=== PATIENT | female | born 1940 | race Caucasian/White ===

== ENCOUNTER 2019-04-16 11:37 | Outpatient (CLI) | payer MEDICARE, BC ==
[~2019-04-16 11:37] MED LIST: FERRIC CARBOXYMALTOSE 750 MG in NORMAL SALINE 250 ML IV PRN
[2019-04-16] MEDS ORDERED: INFLUENZA QUAD (6MOS+) 2019-20 VAC 0.5 ML SYR IM ONE (11:54)
[2019-04-16 12:47] VITALS: BP 186/66
== END 2019-04-16 13:45 | disposition home or self-care (01) ==
LOC: II 11:37 → 5TH 11:44 → II 13:45
PROVIDERS: ATTEND Physician Assistant Medical
DX: D50.8 Other iron deficiency anemias (principal); Z23 Encounter for immunization
CPT/HCPCS: 90686; 96365; J7050; J1439; G0008; 90471; 96372

== ENCOUNTER → 2019-05-27 | Outpatient (CLI) | payer MEDICARE, BC | LOC: OD 10:26 | PROVIDERS: ATTEND Physician Assistant Medical | DX: E87.5 Hyperkalemia (principal) | CPT/HCPCS: 36415; 84132 ==

== ENCOUNTER → 2019-06-07 | Outpatient (CLI) | payer MEDICARE, BC ==
[2019-06-07 16:04] LABS: ABSOLUTE EOSINOPHILS # (AUTO) 0.1 10^3/uL (0.0-0.6); ABSOLUTE LYMPHOCYTES (AUTO) 0.9 10^3/uL (0.5-4.7); ABSOLUTE MONOCYTES (AUTO) 0.5 10^3/uL (0.1-1.4); ABSOLUTE NEUT (AUTO) 3.5 10^3/uL (1.7-8.2); BASOPHILS % (AUTO) 0.9 % (0-2); EOSINOPHILS % (AUTO) 2.8 % (0-6); HEMATOCRIT 31.5 % (36.0-47.0); HEMOGLOBIN 10.7 g/dL (12.0-15.5); LYMPHOCYTES % (AUTO) 17.1 % (13-45); MEAN CORPUSCULAR HEMOGLOBIN 31.6 pg (27.0-33.4); MEAN CORPUSCULAR VOLUME 93 fl (80-97); MONOCYTES % (AUTO) 10.9 % (3-13); PLATELET COUNT 180 10^3/uL (150-450); RED BLOOD COUNT 3.39 10^6/uL (3.72-5.28); RED CELL DISTRIBUTION WIDTH 15.6 % (11.5-14.0); SEGMENTED NEUTROPHILS % (AUTO) 68.3 % (42-78); TOTAL CELLS COUNTED % (AUTO) 100 %; WHITE BLOOD COUNT 5.1 10^3/uL (4.0-10.5)
[2019-06-07 16:29] LABS: ALBUMIN 4.3 g/dL (3.5-5.0); ALKALINE PHOSPHATASE 111 U/L (38-126); ANION GAP 11 (5-19); ASPARTATE AMINO TRANSFERASE 30 U/L (14-36); BILIRUBIN,DIRECT 0.2 mg/dL (0.0-0.4); BILIRUBIN,TOTAL 0.7 mg/dL (0.2-1.3); BLOOD UREA NITROGEN 46 mg/dL (7-20); CALCIUM 9.2 mg/dL (8.4-10.2); CARBON DIOXIDE 24 mmol/L (22-30); CHLORIDE 102 mmol/L (98-107); GLUCOSE 164 mg/dL (75-110); TOTAL PROTEIN 8.1 g/dL (6.3-8.2)
== END ==
LOC: OD 15:24
PROVIDERS: ATTEND Internal Medicine
DX: Z00.00 Encounter for general adult medical examination without abnormal findings (principal); Z79.899 Other long term (current) drug therapy; Z13.1 Encounter for screening for diabetes mellitus
CPT/HCPCS: 36415; 80053; 85025

== ENCOUNTER → 2019-07-29 | Outpatient (CLI) | payer MEDICARE, BC ==
[2019-07-29 14:48] LABS: ABSOLUTE EOSINOPHILS # (AUTO) 0.1 10^3/uL (0.0-0.6); ABSOLUTE LYMPHOCYTES (AUTO) 0.6 10^3/uL (0.5-4.7); ABSOLUTE MONOCYTES (AUTO) 0.4 10^3/uL (0.1-1.4); ABSOLUTE NEUT (AUTO) 2.7 10^3/uL (1.7-8.2); BASOPHILS % (AUTO) 1.2 % (0-2); EOSINOPHILS % (AUTO) 2.9 % (0-6); HEMATOCRIT 30.5 % (36.0-47.0); HEMOGLOBIN 10.4 g/dL (12.0-15.5); LYMPHOCYTES % (AUTO) 16.1 % (13-45); MEAN CORPUSCULAR HEMOGLOBIN 32.1 pg (27.0-33.4); MEAN CORPUSCULAR VOLUME 94 fl (80-97); PLATELET COUNT 170 10^3/uL (150-450); RED BLOOD COUNT 3.23 10^6/uL (3.72-5.28); RED CELL DISTRIBUTION WIDTH 15.5 % (11.5-14.0); SEGMENTED NEUTROPHILS % (AUTO) 68.8 % (42-78); TOTAL CELLS COUNTED % (AUTO) 100 %; WHITE BLOOD COUNT 3.9 10^3/uL (4.0-10.5)
[2019-07-29 15:08] LABS: ALBUMIN 4.2 g/dL (3.5-5.0); ANION GAP 9 (5-19); BLOOD UREA NITROGEN 51 mg/dL (7-20); CARBON DIOXIDE 25 mmol/L (22-30); CHLORIDE 104 mmol/L (98-107); GLUCOSE 107 mg/dL (75-110); IRON(TIBC) 89.2 ug/dL (37-170); PHOSPHORUS 5.3 mg/dL (2.5-4.5); POTASSIUM 5.5 mmol/L (3.6-5.0)
== END ==
LOC: OD 14:10
PROVIDERS: ATTEND Physician Assistant Medical
DX: I12.9 Hypertensive chronic kidney disease with stage 1 through stage 4 chronic kidney disease, or unspecified chronic kidney disease (principal); N18.4 Chronic kidney disease, stage 4 (severe); N25.0 Renal osteodystrophy; E87.5 Hyperkalemia; D64.9 Anemia, unspecified; R60.9 Edema, unspecified
CPT/HCPCS: 36415; 80069; 82728; 83540; 83550; 83970; 85025

== ENCOUNTER 2019-12-11 21:26 | Emergency (ER) | payer MEDICARE, BC ==
[2019-12-11] MEDS ORDERED: MORPHINE SULFATE 10 MG/ML INJ IV ONE (22:50)
--- NOTE | 2019-12-11 22:52 | ER Document Report ---
ED Medical Screen (RME) - General Chief Complaint: Hip Pain Stated Complaint: HIP PAIN Time Seen by Provider: 12/11/19 22:33 Primary Care Provider: HAYDER GARCIA MD [Primary Care Provider] - Follow up as needed Notes: Patient fell in the garage 2 weeks ago and was taken to the [facility] and diagnosed with bilateral sacral fractures a transverse L5 fracture and a right fractured 10th rib. The patient has been having difficulty managing her pain since these injuries. Family states that she fell out of a recliner 2 days ago and has been complaining of increased pain since then. Patient also had a blood blister to the right second fingertip. Finger has since become increasingly painful and swollen. Patient has a history of arthritis, A. fib and pacemaker. I have greeted and performed a rapid initial assessment of this patient. A comprehensive ED assessment and evaluation of the patient, analysis of test results and completion of the medical decision making process will be conducted by additional ED providers. TRAVEL OUTSIDE OF THE [place] IN LAST 30 DAYS: No - Related Data Allergies/Adverse Reactions: hydrocodone [Hydrocodone] Allergy (Mild, Verified 02/12/14 05:53) Hives oxycodone HCl [From Percocet] Allergy (Mild, Verified 02/12/14 05:53) Hives trazodone [Trazodone] Allergy (Verified 02/12/14 05:53) Past Medical History - Past Medical History Cardiac Medical History: Reports: Hx Atrial Fibrillation, Hx Congestive Heart Failure, Hx Hypercholesterolemia, Hx Hypertension Pulmonary Medical History: Reports: Hx Bronchitis, Hx COPD Denies: Hx Asthma, Hx Tuberculosis Neurological Medical History: Reports: Hx Cerebrovascular Accident - 2001?. Denies: Hx Seizures Endocrine Medical History: Reports: Hx Diabetes Mellitus Type 2, Hx Hypothyroidism GI Medical History: Reports: Hx Gastroesophageal Reflux Disease. Denies: Hx Hepatitis, Hx Hiatal Hernia, Hx Ulcer Musculoskeltal Medical History: Reports Hx Arthritis Psychiatric Medical History: Denies: Hx Depression Infectious Medical History: Denies: Hx Hepatitis Past Surgical History: Reports: Hx Cardiac Surgery - pacemaker, Hx Cholecystectomy, Hx Hysterectomy, Hx Pacemaker. Denies: Hx Mastectomy, Hx Open Heart Surgery - Immunizations Hx Diphtheria, Pertussis, Tetanus Vaccination: - unk Physical Exam - General General appearance: Alert In distress: Moderate Notes: Patient moaning, lower lumbar tenderness, right hip tenderness, swelling to the right second fingertip Doctor's Discharge - Discharge Referrals: HAYDER GARCIA MD [Primary Care Provider] - Follow up as needed
[2019-12-11 23:27] LABS: APPEARANCE,URINE SLIGHTLY-CLOUDY; BILIRUBIN,URINE NEGATIVE (NEGATIVE); COLOR,URINE YELLOW; GLUCOSE, URINE NEGATIVE (NEGATIVE); KETONES,URINE NEGATIVE (NEGATIVE); LEUKOCYTE ESTERASE,URINE NEGATIVE (NEGATIVE); NITRITE,URINE NEGATIVE (NEGATIVE); PROTEIN,URINE NEGATIVE (NEGATIVE); UROBILINOGEN,URINE NEGATIVE mg/dL (<2.0)
--- NOTE | 2019-12-12 00:45 | RADIOLOGY REPORT (SQ) ---
EXAM DESCRIPTION: XR HIP 2 OR MORE VIEWS COMPLETED DATE/TME: 12/11/2019 22:39 CLINICAL INDICATION: 79-year-old female with RIGHT hip pain status post fall. COMPARISON: None. TECHNIQUE: Single frontal view of the pelvis and lateral view of the RIGHT hip was obtained. The patient is rotated limiting evaluation. FINDINGS: There is no fracture or dislocation. The joint spaces are preserved. No soft tissue abnormalities are seen. Vascular calcification present throughout the pelvis and soft tissues. Limited view of the LEFT hip secondary to internal rotation. IMPRESSION: No acute radiographic abnormality. If there remains clinical concern for RIGHT hip fracture, CT of the pelvis is recommended.
--- NOTE | 2019-12-12 00:50 | RADIOLOGY REPORT (SQ) ---
EXAM DESCRIPTION: XR LUMBAR SPINE ANTEROPOSTERIOR, LATERAL, AND OBLIQUES COMPLETED DATE/TME: 12/11/2019 22:39 CLINICAL HISTORY: 79 years Female, fall, low back pain COMPARISON: None. Findings: 0.4 cm grade 1 L4 anterolisthesis, age indeterminate. Moderate spondylosis. Atherosclerosis. Bone demineralization. Normal curvature. Vertebral heights are maintained. Visualized extraspinal structures are otherwise unremarkable. IMPRESSION: 0.4 cm grade 1 L4 anterolisthesis, age indeterminate. Moderate spondylosis.
--- NOTE | 2019-12-12 01:07 | RADIOLOGY REPORT (SQ) ---
EXAM DESCRIPTION: XR FINGERS COMPLETED DATE/TME: 12/11/2019 22:39 CLINICAL INDICATION: 79-year-old female with finger swelling. TECHNIQUE: Three views RIGHT hand were obtained in AP, lateral and oblique projections COMPARISON: None. FINDINGS: Limited evaluation of the distal digits secondary to patient positioning., Further the distal phalanx of the third digit is not visualized secondary to overlying monitor device. Overall the bones appear to be diffusely demineralized. Degenerative changes identified at the distal interphalangeal joints with joint space narrowing and osteophyte formation compatible with osteoarthritis. There is no fracture or dislocation. The joint spaces are preserved. Diffuse soft tissue swelling at the level of the distal second digit raising the concern for infectious or inflammatory etiology. On the lateral view, there appears to be loss of the normal distal tuft of the second digit.. A tiny focus of calcific density is identified within the distal tuft soft tissues. Overall findings raise the possibility of sequela of prior trauma or erosive, inflammatory arthropathy. IMPRESSION: 1. Nonspecific diffuse soft tissue swelling of the second digit raising the concern for infectious or inflammatory etiology as detailed above.
--- NOTE | 2019-12-12 01:23 | ER Document Report ---
ED General - General Chief Complaint: Hip Pain Stated Complaint: HIP PAIN Time Seen by Provider: 12/11/19 22:33 Primary Care Provider: HAYDER GARCIA MD [Primary Care Provider] - Follow up as needed TRAVEL OUTSIDE OF THE [place] IN LAST 30 DAYS: No - HPI Notes: Patient is a 79-year-old female who presents to the emergency department for evaluation. Her history is obtained entirely from triage note as well as from discussions with her niece. Evidently the patient fell 2 months ago, everything seemed to be fine. She fell again 2 weeks ago. She was diagnosed with sacral fractures, thought to be subacute after evaluation by trauma service as well as report of history per the niece. The patient had already been on chronic Nucynta 100 mg twice a day. The patient was not given any new pain medications when she was sent home. She has been taking the Nucynta, as well as old Ultram. She is been using lidocaine patches and Tylenol. Evidently she was in significant pain tonight, to the point where she begged her niece to send her to the ER for further evaluation. Patient has expressed that she is not interested in going back into a shelter. Patient also has a lesion on her right finger. Patient's niece states it looked initially like a blood blister. She states it was a normal-looking finger about a week ago. It was intermittently bleeding. It was found to be erythematous, and the patient was seen by primary care provider. They were supposed to start antibiotics but they have not yet been started. Patient has had some altered mental status here, I asked the niece about that. She states this is not uncommon, particularly at night. It seems to be worsening, but often the patient will recognize herself or family members in the middle of the night. - Related Data Allergies/Adverse Reactions: hydrocodone [Hydrocodone] Allergy (Mild, Verified 02/12/14 05:53) Hives oxycodone HCl [From Percocet] Allergy (Mild, Verified 02/12/14 05:53) Hives trazodone [Trazodone] Allergy (Verified 02/12/14 05:53) Past Medical History - General Information source: Relative, [facility] Records - Social History Smoking Status: Never Smoker Frequency of alcohol use: None Drug Abuse: None Family History: Reviewed & Not Pertinent, Other - Past Medical History Cardiac Medical History: Reports: Hx Atrial Fibrillation, Hx Congestive Heart Failure, Hx Hypercholesterolemia, Hx Hypertension Pulmonary Medical History: Reports: Hx Bronchitis, Hx COPD Denies: Hx Asthma, Hx Tuberculosis Neurological Medical History: Reports: Hx Cerebrovascular Accident - 2001?. Denies: Hx Seizures Endocrine Medical History: Reports: Hx Diabetes Mellitus Type 2, Hx Hypothyroidism GI Medical History: Reports: Hx Gastroesophageal Reflux Disease. Denies: Hx Hepatitis, Hx Hiatal Hernia, Hx Ulcer Musculoskeletal Medical History: Reports Hx Arthritis Skin Medical History: Reports Hx MRSA Psychiatric Medical History: Denies: Hx Depression Infectious Medical History: Denies: Hx Hepatitis Past Surgical History: Reports: Hx Cholecystectomy, Hx Hysterectomy, Hx Pacemaker. Denies: Hx Mastectomy, Hx Open Heart Surgery - Immunizations Hx Diphtheria, Pertussis, Tetanus Vaccination: - unk Hx Pneumococcal Vaccination: 11/09/11 Review of Systems - Review of Systems -: Yes ROS unobtainable due to patient's medical condition Physical Exam - Vital signs Vitals: Temp Pulse Resp BP Pulse Ox 98.7 F 60 18 140/70 H 97 12/11/19 21:35 12/11/19 21:35 12/11/19 21:35 12/11/19 21:35 12/11/19 21:35 - Notes Notes: This is a 79-year-old female who appears older than her stated age, in no acute distress. She is resting comfortably when I walk in the room. She arouses to verbal stimuli. Head is normocephalic and atraumatic, pupils are equal and round, reactive to light. Oral mucosa slightly dry. Heart is regular rate and rhythm, lungs are clear to auscultation bilaterally. Abdomen soft, nontender, normoactive bowel sounds. No pelvic instability. No obvious deformity to the pelvis or lower extremities. Passive range of motion of the right lower extremity causes significant pain. Mild pain with passive left range of motion. Neurovascularly intact distally. No posterior calf tenderness. Patient is awake and alert. She is cooperative with examiner. She follows commands, 4 out of 5 strength bilateral upper extremities. She is intermittently confused, tells me she is in [place], but knows she is in the hospital. She can tell me it is 2019. Examination of the right upper extremity yields diffuse erythema with mild swelling over the right distal phalanx. There is a 5 mm nodule, tender, over the distal aspect, with some mild purulence/inflammatory fluid noted at the area. Passive range of motion does not seem to cause significant pain, patient is unable to follow directions for active stiff range of motion. She is not tender over the extensor or flexor tendons. She does not have symmetrical swelling of the entire digit. Course - Re-evaluation Re-evalutation: 12/12/19 02:41 Patient presents to the emergency department for evaluation. I did discuss this patient at length with Harriet Huff, the patient's niece. Primarily the patient was sent in here for pain control, as well as to check and make sure she did not have any significant renal failure or electrolyte abnormalities. Her creatinine is mildly elevated, but certainly not markedly so. I will give her some IV fluids. Awaiting CT scan of the hip. Patient did receive some relief with the morphine, although I do believe it may have worsened her mental status. She has tolerated the Nucynta in the past. Secondary to her new and acute increased pain, I certainly think it is reasonable to increase her Nucynta as needed, and the patient's niece is amenable to this as well. We will also prescribe more Ultram as needed for breakthrough pain, as the patient has been tolerating this at home. Still awaiting results, we will continue to monitor. 12/12/19 02:46 Please note that I will treat the patient for a soft tissue cellulitis on her right finger. Because of her renal function abnormalities, I am inclined to treat with doxycycline so no renal dose adjustment will need to be performed. The patient does not fact have an MRSA history. 12/12/19 03:13 Patient has subacute fractures that appear to be healing, no new fracture. I will go ahead and increase her Nucynta as discussed. I will start her on doxycycline. She is to follow closely with her primary care provider as well as her orthopedists in [place]. She is to return the emergency department with worsening or new concerning symptoms of any sort. - Vital Signs Vital signs: Temp Pulse Resp BP Pulse Ox 98.7 F 60 21 H 118/50 L 95 12/11/19 23:07 12/11/19 21:35 12/12/19 03:01 12/12/19 03:01 12/12/19 03:01 - Laboratory Result Diagrams: 12/12/19 01:25 12/12/19 01:25 Laboratory results interpreted by me: 12/12/19 12/12/19 01:25 01:25 WBC 10.9 H RBC 3.15 L Hgb 8.9 L Hct 27.8 L RDW 17.1 H Seg Neuts % (Manual) 83 H Lymphocytes % (Manual) 4 L Abs Neuts (Manual) 9.6 H Abs Lymphs (Manual) 0.4 L Sodium 136.8 L BUN 49 H Creatinine 1.79 H Est GFR ( Amer) 33 L Est GFR (MDRD) Non-Af 27 L Glucose 126 H Direct Bilirubin 0.6 H Alkaline Phosphatase 210 H - Diagnostic Test Radiology reviewed: Reports reviewed Radiology results interpreted by me: 12/12/19 03:13 Finger X-Ray 12/11/19 22:39 IMPRESSION: 1. Nonspecific diffuse soft tissue swelling of the second digit raising the concern for infectious or inflammatory etiology as detailed above. Hip/Pelvis X-Ray 12/11/19 22:39 IMPRESSION: No acute radiographic abnormality. If there remains clinical concern for RIGHT hip fracture, CT of the pelvis is recommended. Lumbar Spine X-Ray 12/11/19 22:39 IMPRESSION: 0.4 cm grade 1 L4 anterolisthesis, age indeterminate. Moderate spondylosis. Lower Extremity CT 12/12/19 01:20 IMPRESSION: 1. Subacute healing right sacral insufficiency fracture. 2. Subacute healing right L5 transverse process fracture. Discharge - Discharge Clinical Impression: Cellulitis of right index finger, Right hip pain, Abnormal renal function Condition: Stable Disposition: HOME, SELF-CARE Instructions: Cellulitis ([facility]), Fracture ([facility]), Kidney Function Abnormality ([facility]) Additional Instructions: Please take antibiotics as prescribed. Take the Nucynta as directed, as needed for severe pain. Ultram as needed for breakthrough pain. Follow-up closely with primary care provider as well as orthopedists in [place]. Return to the emergency department with worsening or new concerning symptoms of any sort. Referrals: HAYDER GARCIA MD [Primary Care Provider] - Follow up as needed
[2019-12-12 01:55] LABS: ALBUMIN 3.9 g/dL (3.5-5.0); ALKALINE PHOSPHATASE 210 U/L (38-126); ANION GAP 13 (5-19); ASPARTATE AMINO TRANSFERASE 32 U/L (14-36); BILIRUBIN,DIRECT 0.6 mg/dL (0.0-0.4); BILIRUBIN,TOTAL 1.2 mg/dL (0.2-1.3); BLOOD UREA NITROGEN 49 mg/dL (7-20); CARBON DIOXIDE 24 mmol/L (22-30); CHLORIDE 100 mmol/L (98-107); GLUCOSE 126 mg/dL (75-110); POTASSIUM 4.9 mmol/L (3.6-5.0); TOTAL PROTEIN 7.3 g/dL (6.3-8.2)
[2019-12-12] MEDS ORDERED: NORMAL SALINE 500 ML IV ONE (02:03)
[2019-12-12 02:29] LABS: HEMATOCRIT 27.8 % (36.0-47.0); HEMOGLOBIN 8.9 g/dL (12.0-15.5); MEAN CORPUSCULAR HEMOGLOBIN 28.4 pg (27.0-33.4); MEAN CORPUSCULAR HGB CONC 32.1 g/dL (32.0-36.0); MEAN CORPUSCULAR VOLUME 88 fl (80-97); PLATELET COUNT 206 10^3/uL (150-450); RED BLOOD COUNT 3.15 10^6/uL (3.72-5.28); RED CELL DISTRIBUTION WIDTH 17.1 % (11.5-14.0); WHITE BLOOD COUNT 10.9 10^3/uL (4.0-10.5)
[2019-12-12 02:33] LABS: BASOPHILS % (MANUAL) 0 % (0-2); EOSINOPHILS % (MANUAL) 0 % (0-6)
[2019-12-12 02:34] LABS: ABSOLUTE LYMPHOCYTES# (MANUAL) 0.4 10^3/uL (0.5-4.7); ABSOLUTE MONOCYTES # (MANUAL) 0.9 10^3/uL (0.1-1.4); BAND NEUTROPHILS % (MANUAL) 5 % (3-5); LYMPHOCYTES % (MANUAL) 4 % (13-45); MONOCYTES % (MANUAL) 8 % (3-13); SEGMENTED NEUTROPHILS % (MAN) 83 % (42-78); TOTAL CELLS COUNTED 100
[2019-12-12 02:36] LABS: ANISOCYTOSIS 1+; BURR CELLS SLIGHT; OVALOCYTES SLIGHT; PLATELET COMMENT ADEQUATE; POIKILOCYTOSIS SLIGHT; SCHISTOCYTES SLIGHT; TOXIC GRANULATION SLIGHT
[2019-12-12] MEDS ORDERED: DOXYCYCLINE HYCLATE 100 MG TABLET PO ONE (02:45)
--- NOTE | 2019-12-12 03:00 | RADIOLOGY REPORT (SQ) ---
CT right hip without contrast on 12/12/2019 at 2:07 AM CLINICAL INDICATION: Right hip pain after fall TECHNIQUE: Multiple axial images are obtained throughout the right hip without the administration of contrast. Sagittal and coronal reformatted images are also performed and reviewed. This exam was performed according to our departmental dose-optimization program, which includes automated exposure control, adjustment of the mA and/or kV according to patient size and/or use of iterative reconstruction technique. Total DLP is 1706.4 mGy*cm. COMPARISON: X-ray from 12/11/2019 FINDINGS: Vascular calcifications are noted. There is subacute healing right L5 transverse process fracture. There is subacute right sacral insufficiency fracture involving the mid to upper aspect of the right sacrum with sclerosis and some evidence of healing consistent with the subacute nature. The right hip is well located. There are no acute fracture lines. No other bony or soft tissue abnormality is noted. There is grade 1 spondylolisthesis at L4/5 secondary to degenerative facet disease. IMPRESSION: 1. Subacute healing right sacral insufficiency fracture. 2. Subacute healing right L5 transverse process fracture.
[2019-12-12] MEDS ORDERED: TRAMADOL HCL 50 MG TABLET PO ONE (03:26)
[2019-12-12 05:48] VITALS: BP 130/87
== END 2019-12-12 06:01 | disposition home or self-care (01) ==
LOC: ER 21:26
DX: S32.10XA Unspecified fracture of sacrum, initial encounter for closed fracture (principal); S32.059A Unspecified fracture of fifth lumbar vertebra, initial encounter for closed fracture; W19.XXXA Unspecified fall, initial encounter; L03.011 Cellulitis of right finger; R41.82 Altered mental status, unspecified; M47.816 Spondylosis without myelopathy or radiculopathy, lumbar region; M25.551 Pain in right hip; R79.89 Other specified abnormal findings of blood chemistry; L53.9 Erythematous condition, unspecified; M79.89 Other specified soft tissue disorders; I10 Essential (primary) hypertension; J44.9 Chronic obstructive pulmonary disease, unspecified; E11.9 Type 2 diabetes mellitus without complications; Z79.891 Long term (current) use of opiate analgesic; Z88.6 Allergy status to analgesic agent; Z88.5 Allergy status to narcotic agent; Z88.8 Allergy status to other drugs, medicaments and biological substances
CPT/HCPCS: 99285; 96361; 96374; 36415; 87040; 82962; 85025; 87077; 80053; 81001; 87186; 87150 ×26; 73140; 73502; 72110; 73700; A9270 ×2; J2270; J7040

== ENCOUNTER 2019-12-12 21:07 | Inpatient (IN) | payer MEDICARE, BC ==
[2019-12-12] MEDS ORDERED: LINEZOLID 600 MG/300 ML RTUPB IV ONE (21:32)
[2019-12-12] MEDS ORDERED: RINGERS SOLUTION,LACTATED 1,000 ML IV ONE ×2 (21:33→23:28)
--- NOTE | 2019-12-12 21:39 | ER Document Report ---
ED General - General Chief Complaint: General Weakness Stated Complaint: POSSIBLE SEPSIS Time Seen by Provider: 12/12/19 21:23 Primary Care Provider: HAYDER GARCIA MD [Primary Care Provider] - Follow up as needed TRAVEL OUTSIDE OF THE [place] IN LAST 30 DAYS: No - HPI Notes: Patient is a 79-year-old female who presents to the emergency department for evaluation. I had the pleasure of seeing this patient last evening. She was seen here with increased pain, as well as erythema on her right index finger, concerning for infection. Patient had her pain medications altered, was started on doxycycline. This was administered here, they have not yet filled the prescription. According to the patient's niece, primary historian, the patient pretty much slept all day. She seemed more confused than normal. I contacted them when I was notified by nursing that the patient's blood cultures were positive. Preliminary results were reviewed by myself and reveal findings consistent with likely MRSA. The patient does have a history of MRSA in the past. Patient was advised to come here to the emergency department for evaluation. Sepsis work-up begun. The patient continues to complain of severe back and sacral pain. Her right finger wound had been bandaged up until arrival here. - Related Data Allergies/Adverse Reactions: hydrocodone [Hydrocodone] Allergy (Mild, Verified 02/12/14 05:53) Hives oxycodone HCl [From Percocet] Allergy (Mild, Verified 02/12/14 05:53) Hives trazodone [Trazodone] Allergy (Verified 02/12/14 05:53) Past Medical History - General Information source: Relative - Social History Smoking Status: Never Smoker Family History: Reviewed & Not Pertinent, Other - Past Medical History Cardiac Medical History: Reports: Hx Atrial Fibrillation, Hx Congestive Heart Failure, Hx Hypercholesterolemia, Hx Hypertension Pulmonary Medical History: Reports: Hx Bronchitis, Hx COPD Denies: Hx Asthma, Hx Tuberculosis Neurological Medical History: Reports: Hx Cerebrovascular Accident - 2001?. Denies: Hx Seizures Endocrine Medical History: Reports: Hx Diabetes Mellitus Type 2, Hx Hypothyroidism GI Medical History: Reports: Hx Gastroesophageal Reflux Disease. Denies: Hx Hepatitis, Hx Hiatal Hernia, Hx Ulcer Musculoskeletal Medical History: Reports Hx Arthritis Skin Medical History: Reports Hx MRSA Psychiatric Medical History: Denies: Hx Depression Infectious Medical History: Denies: Hx Hepatitis Past Surgical History: Reports: Hx Cardiac Surgery - pacemaker, Hx Cholecystectomy, Hx Hysterectomy, Hx Pacemaker. Denies: Hx Mastectomy, Hx Open Heart Surgery - Immunizations Hx Diphtheria, Pertussis, Tetanus Vaccination: - unk Hx Pneumococcal Vaccination: 11/09/11 Review of Systems - Review of Systems Constitutional: See HPI, Weakness EENT: No symptoms reported Cardiovascular: No symptoms reported Respiratory: No symptoms reported Gastrointestinal: No symptoms reported Genitourinary: No symptoms reported Musculoskeletal: See HPI Skin: See HPI Neurological/Psychological: See HPI -: Yes All other systems reviewed and negative Physical Exam - Vital signs Vitals: Pulse Ox 100 12/12/19 21:09 - Notes Notes: This is a very pleasant 79-year-old female who appears her stated age in a mild to moderate distress. GCS 14. She seems to be uncomfortable with back pain brought about by any sort of motion. Head is normocephalic and atraumatic, pupils are equal and round, reactive to light. Oral mucosa is moist. Uvula is midline. Heart is regular rate and rhythm, lungs are clear to station bilaterally. Abdomen soft, nontender, normoactive bowel sounds. Extremities without cyanosis or clubbing. Skin is warm and dry. Examination of the right upper extremity yields a moderate amount of edema and erythema to the right i ndex finger. It actually appears less erythematous than last evening. No significant lymphangitic streaking. Sensation is intact. Patient is drowsy but opens her eyes to verbal stimuli. She is oriented x3. She moves all 4 extremities spontaneously, although any sort of movement does bring about back pain. No gross facial asymmetry. Course - Re-evaluation Re-evalutation: 12/12/19 21:38 Patient presents to the emergency department for evaluation. Laboratory investigations including sepsis work-up are ordered. Patient has a history of MRSA, but she also had some mild LINA last evening. I will ahead and order some linezolid to cover for MRSA. I will order a liter of fluids. Per ideal body weight the patient should receive approximately 1500 cc. She does have an EF that was reduced on last echo cardiogram here at this hospital. I am not inclined to treat her with the full 30 cc/kg recommended bolus based on her weight. We will continue a search for any other source, as it seems possible that she may have a different source besides her finger. Patient is currently stable, we will continue to monitor. 12/12/19 23:38 Patient's laboratory investigations reveal a significant leukocytosis. She has worsening LINA. She has already been ordered linezolid. Given the fact that her white blood cell count is markedly elevated, and I am still not 100% sure of the source, I will cover with cefepime as well. I will contact medicine for admission. 12/12/19 23:[address] Hay. He has concerns about this patient's elevated troponin. I will contact Dr. Olivo of cardiology. 12/12/19 23:[address] Olivo about this patient. She has a ventricularly paced EKG. She has no chest pain. She is already on Eliquis. He does not believe that this troponin would warp changer in any way, certainly she is not a candidate for heart catheterization. I will contact Dr. Hay. 12/12/19 23:55 He will come and evaluate the patient. - Vital Signs Vital signs: Temp Pulse Resp BP Pulse Ox 60 20 150/59 H 100 12/12/19 21:19 12/13/19 00:01 12/13/19 00:01 12/13/19 00:01 - Laboratory Result Diagrams: 12/12/19 22:00 12/12/19 22:00 Laboratory results interpreted by me: 12/12/19 12/12/19 12/12/19 22:00 22:00 22:00 WBC 19.6 H RBC 3.12 L Hgb 8.8 L Hct 27.3 L RDW 17.0 H Seg Neuts % (Manual) 90 H Lymphocytes % (Manual) 2 L Abs Neuts (Manual) 18.2 H Abs Lymphs (Manual) 0.4 L PT 21.4 H Sodium 134.5 L BUN 49 H Creatinine 1.86 H Est GFR ( Amer) 32 L Est GFR (MDRD) Non-Af 26 L Glucose 112 H Direct Bilirubin 0.5 H Alkaline Phosphatase 183 H Urine Blood Urine Urobilinogen 12/12/19 22:50 WBC RBC Hgb Hct RDW Seg Neuts % (Manual) Lymphocytes % (Manual) Abs Neuts (Manual) Abs Lymphs (Manual) PT Sodium BUN Creatinine Est GFR ( Amer) Est GFR (MDRD) Non-Af Glucose Direct Bilirubin Alkaline Phosphatase Urine Blood SMALL H Urine Urobilinogen 2.0 H - Diagnostic Test Radiology reviewed: Reports reviewed Radiology results interpreted by me: 12/12/19 23:39 Chest X-Ray 12/12/19 21:31 IMPRESSION: No evidence of acute cardiopulmonary disease. - EKG Interpretation by Me Additional EKG results interpreted by me: 12/12/19 23:39 Ventricular pacing, 60 bpm. Discharge - Discharge Clinical Impression: Cellulitis of right index finger, Staphylococcus aureus bacteremia with sepsis, Acute kidney injury, Elevated troponin Sepsis Qualifiers: Sepsis type: methicillin resistant Staphylococcus aureus Sepsis acute organ dysfunction status: with acute organ dysfunction Severe sepsis acute organ dysfunction type: unspecified Severe sepsis shock status: without septic shock Qualified Code(s): A41.02 - Sepsis due to Methicillin resistant Staphylococcus aureus Condition: Stable Disposition: ADMITTED INPATIENT Admitting Provider: [facility] Unit Admitted: Telemetry Referrals: HAYDER GARCIA MD [Primary Care Provider] - Follow up as needed
--- NOTE | 2019-12-12 22:20 | RADIOLOGY REPORT (SQ) ---
XR CHEST 1 VIEW HISTORY: Bacteremia. COMPARISON: 02/17/2014 FINDINGS: The heart size is enlarged with a stable left chest wall pacemaker and vascular stent noted. There is no pulmonary vascular congestion. No consolidation, pleural effusion, or pneumothorax is seen. No acute bony findings are seen. IMPRESSION: No evidence of acute cardiopulmonary disease.
[2019-12-12 22:44] LABS: VENOUS BLOOD BASE EXCESS -0.8 mmol/L; VENOUS BLOOD HCO3 23.3 mmol/L (20-32); VENOUS BLOOD PCO2 36.9 mmHg (35-63); VENOUS BLOOD PH 7.42 (7.30-7.42)
[2019-12-12 22:46] LABS: INTERNATIONAL RATION (INR) 1.85; PROTHROMBIN TIME 21.4 SEC (11.4-15.4)
[2019-12-12 23:02] LABS: ALBUMIN 3.5 g/dL (3.5-5.0); ALKALINE PHOSPHATASE 183 U/L (38-126); ANION GAP 13 (5-19); ASPARTATE AMINO TRANSFERASE 34 U/L (14-36); BILIRUBIN,DIRECT 0.5 mg/dL (0.0-0.4); BILIRUBIN,TOTAL 1.1 mg/dL (0.2-1.3); BLOOD UREA NITROGEN 49 mg/dL (7-20); CALCIUM 8.8 mg/dL (8.4-10.2); CARBON DIOXIDE 24 mmol/L (22-30); CHLORIDE 98 mmol/L (98-107); GLUCOSE 112 mg/dL (75-110); HEMATOCRIT 27.3 % (36.0-47.0); HEMOGLOBIN 8.8 g/dL (12.0-15.5); MEAN CORPUSCULAR HEMOGLOBIN 28.2 pg (27.0-33.4); MEAN CORPUSCULAR HGB CONC 32.3 g/dL (32.0-36.0); MEAN CORPUSCULAR VOLUME 87 fl (80-97); PLATELET COUNT 211 10^3/uL (150-450); POTASSIUM 4.3 mmol/L (3.6-5.0); RED BLOOD COUNT 3.12 10^6/uL (3.72-5.28); WHITE BLOOD COUNT 19.6 10^3/uL (4.0-10.5)
[2019-12-12 23:13] LABS: APPEARANCE,URINE SLIGHTLY-CLOUDY; BILIRUBIN,URINE NEGATIVE (NEGATIVE); COLOR,URINE YELLOW; GLUCOSE, URINE NEGATIVE (NEGATIVE); KETONES,URINE NEGATIVE (NEGATIVE); PROTEIN,URINE NEGATIVE (NEGATIVE); URINE SPECIFIC GRAVITY 1.013
[2019-12-12 23:30] LABS: ABSOLUTE LYMPHOCYTES# (MANUAL) 0.4 10^3/uL (0.5-4.7); BAND NEUTROPHILS % (MANUAL) 3 % (3-5); BASOPHILS % (MANUAL) 0 % (0-2); EOSINOPHILS % (MANUAL) 0 % (0-6); LYMPHOCYTES % (MANUAL) 2 % (13-45); MONOCYTES % (MANUAL) 5 % (3-13); SEGMENTED NEUTROPHILS % (MAN) 90 % (42-78); TOTAL CELLS COUNTED 100
[2019-12-12 23:31] LABS: POLYCHROMASIA SLIGHT
[2019-12-12 23:32] LABS: ANISOCYTOSIS 1+; PLATELET COMMENT ADEQUATE; POIKILOCYTOSIS 1+
[2019-12-12] MEDS ORDERED: APIXABAN 5 MG TABLET PO ONE (23:41)
[2019-12-12] MEDS ORDERED: CEFEPIME 1 GM/D5W RTU 1 GM/50 ML RTUPB IV ONE (23:48)
--- NOTE | 2019-12-13 01:09 | PDOC H&P ---
History of Present Illness Admission Date/PCP: HAYDER GARCIA Patient complains of: Right index finger pain and swelling History of Present Illness: JEEVAN ADAMS is a 79 year old female with a history of hypertension on anticoagulation, heart failure, hypertension who was seen at the ED a day ago for cellulitis of the right index finger with cold about this afternoon after he had blood culture obtained on that visit grew gram-positive cocci from both bottles. Currently patient reports pain on the affected area, there is also redness and swelling associated with it. Patient also reports low back pain. Of note, she had sacral fracture few months back after a fall and has been on tramadol as needed. Past Medical History Cardiac Medical History: Reports: Atrial Fibrillation, Congestive Heart Failure, Hyperlipidema, Hypertension Pulmonary Medical History: Reports: Bronchitis, Chronic Obstructive Pulmonary Disease (COPD) Denies: Asthma, Tuberculosis Neurological Medical History: Denies: Seizures Endocrine Medical History: Reports: Diabetes Mellitus Type 2, Hypothyroidism GI Medical History: Reports: Gastroesophageal Reflux Disease Denies: Hepatitis, Hiatal Hernia Musculoskeltal Medical History: Reports: Arthritis Psychiatric Medical History: Denies: Depression Hematology: Reports: Anemia - medicated Denies: Sickle Cell Disease Past Surgical History Past Surgical History: Reports: Cholecystectomy, Hysterectomy, Pacemaker Denies: Amputation, Mastectomy Social History Lives with: Family Smoking Status: Never Smoker Frequency of Alcohol Use: None Hx Recreational Drug Use: No Hx Prescription Drug Abuse: No - Advance Directive Resuscitation Status: Full Code Surrogate healthcare decision maker:: Patient unable to give answers to questions regarding rehabilitation and in tubation. We will keep her full code at this time and consider discussion with family Family History Family History: Reviewed & Not Pertinent, Other Parental Family History Reviewed: Yes Children Family History Reviewed: Yes Sibling(s) Family History Reviewed.: Yes Medication/Allergy Home Medications: Apixaban [Eliquis 5 mg Tablet] 5 mg PO BID #0 tablet 02/19/14 Aspirin [Ecotrin 81 mg EC Tablet] 81 mg PO DAILY #0 tabec 02/19/14 Lisinopril [Prinivil 5 mg Tablet] 2.5 mg PO DAILY #0 tablet 02/19/14 Doxycycline Hyclate [Vibramycin 100 mg Tablet] 100 mg PO BID #20 tablet MDD FILLED 12/11 FOR 10 DAY SUPPLY 12/12/19 Tramadol HCl [Ultram 50 mg Tablet] 50 mg PO Q6HP PRN #40 tablet MDD FILLED 12/11 FOR 10 DAY SUPPLY 12/12/19 Amlodipine Besylate [Norvasc 5 mg Tablet] 5 mg PO DAILY 12/13/19 Desvenlafaxine Succinate [Pristiq ER] 25 mg PO Q12 12/13/19 Duloxetine HCl [Cymbalta 30 mg Capsule.dr] 30 mg PO DAILY 12/13/19 Furosemide [Lasix 40 mg Tablet] 40 mg PO QAM 12/13/19 Gabapentin [Neurontin 100 mg Capsule] 100 mg PO 12/13/19 Levothyroxine Sodium [Synthroid 0.075 mg Tablet] 0.075 mg PO Q6AM 12/13/19 Lidocaine [Lidoderm 5% (700 mg) Transdermal Patch] 1 patch TP DAILYP PRN 12/13/19 Metoprolol Succinate [Toprol Xl 25 mg Tab.sr] 25 mg PO DAILY 12/13/19 Pregabalin [Lyrica 50 Mg Capsule] 50 mg PO 12/13/19 Tapentadol HCl [Nucynta ER] 100 mg PO Q12 12/13/19 Allergies/Adverse Reactions: hydrocodone [Hydrocodone] Allergy (Mild, Verified 02/12/14 05:53) Hives oxycodone HCl [From Percocet] Allergy (Mild, Verified 02/12/14 05:53) Hives trazodone [Trazodone] Allergy (Verified 02/12/14 05:53) Review of Systems Constitutional: ABSENT: chills, headache(s), weight gain, weight loss Eyes: ABSENT: visual disturbances Nose, Mouth, and Throat: ABSENT: as per HPI, headache(s), mouth pain, sore throat, vertigo, other Cardiovascular: ABSENT: chest pain, dyspnea on exertion, edema, orthropnea, palpitations Respiratory: ABSENT: cough, hemoptysis Gastrointestinal: ABSENT: abdominal pain, constipation, diarrhea, hematemesis, hematochezia, nausea, vomiting Musculoskeletal: PRESENT: as per HPI Integumentary: PRESENT: as per HPI Endocrine: ABSENT: cold intolerance, heat intolerance, polydipsia, polyuria Hematologic/Lymphatic: ABSENT: easy bleeding, easy bruising Physical Exam Vital Signs: Temp Pulse Resp BP Pulse Ox 98.9 F 60 19 98/78 L 100 12/12/19 21:20 12/12/19 21:19 12/13/19 01:01 12/13/19 01:01 12/13/19 01:01 Intake & Output 12/11/19 12/12/19 12/13/19 06:59 06:59 06:59 Intake Total 1350 Balance 1350 Weight 109.769 kg Additional comments: GENERAL APPEARANCE: Alert and oriented x3, no acute distress HEENT: Normocephalic and atraumatic. No scleral icterus. Dry oral mucosa NECK: Supple. No lymphadenopathy or tenderness. No carotid bruit. No JVD CHEST: Symmetric. Nontender to palpation. LUNGS: Defiantly heard breath sounds due to body habitus HEART: Regular rate and rhythm with normal S1 and S2. No murmurs, gallops, or rubs. ABDOMEN: soft, active bowel sounds, no direct or rebound tenderness. No organomegaly detected. EXTREMITIES: No cyanosis, clubbing, or edema. MUSCULOSKELETAL: No deformity, atrophy or swelling noted SKIN: Daily redness, swelling and differential warmth around the right index finger NEUROLOGIC: No focal sensory or motor deficits are noted. Results Laboratory Results: 12/12/19 22:00 12/12/19 22:00 12/12/19 12/12/19 12/12/19 22:00 22:00 22:00 WBC 19.6 H RBC 3.12 L Hgb 8.8 L Hct 27.3 L MCV 87 MCH 28.2 MCHC 32.3 RDW 17.0 H Plt Count 211 Seg Neutrophils % Not Reportable VBG pH 7.42 VBG pCO2 36.9 VBG HCO3 23.3 VBG Base Excess -0.8 Sodium 134.5 L Potassium 4.3 Chloride 98 Carbon Dioxide 24 Anion Gap 13 BUN 49 H Creatinine 1.86 H Est GFR ( Amer) 32 L Glucose 112 H Lactic Acid Calcium 8.8 Total Bilirubin 1.1 AST 34 Alkaline Phosphatase 183 H Total Protein 7.0 Albumin 3.5 Urine Color Urine Appearance Urine pH Ur Specific [place] Urine Protein Urine Glucose (UA) Urine Ketones Urine Blood Urine RBC (Auto) 12/12/19 12/12/19 22:00 22:50 WBC RBC Hgb Hct MCV MCH MCHC RDW Plt Count Seg Neutrophils % VBG pH VBG pCO2 VBG HCO3 VBG Base Excess Sodium Potassium Chloride Carbon Dioxide Anion Gap BUN Creatinine Est GFR ( Amer) Glucose Lactic Acid 1.3 Calcium Total Bilirubin AST Alkaline Phosphatase Total Protein Albumin Urine Color YELLOW Urine Appearance SLIGHTLY-CLOUDY Urine pH 5.0 Ur Specific [place] 1.013 Urine Protein NEGATIVE Urine Glucose (UA) NEGATIVE Urine Ketones NEGATIVE Urine Blood SMALL H Urine RBC (Auto) 0 12/12/19 22:00 Troponin I 0.245 Impressions: Chest X-Ray 12/12/19 21:31 IMPRESSION: No evidence of acute cardiopulmonary disease. Assessment and Plan - Diagnosis (1) Staphylococcus aureus bacteremia with sepsis Is this a current diagnosis for this admission?: Yes Plan: Likely source of infection: right index finger cellulitis Blood culture growing gram-positive cocci Has leukocytosis of 19k with left shift Patient hemodynamically stable, lactic acid within the normal limits Patient has been started on linezolid Repeat blood cultures have been obtained and follow-up with results Closely monitor vital signs (2) Cellulitis of right index finger Is this a current diagnosis for this admission?: Yes Plan: Patient presents with signs of nonpurulent right index finger cellulitis Has marked leukocytosis with left shift Failed outpatient treatment Blood culture growing gram-positive cocci Started on linezolid (3) Acute kidney injury Is this a current diagnosis for this admission?: Yes Plan: Creatinine has bumped up to 1.86 from a baseline of around 1.4-1.6 We will cautiously hydrate her due to her history of heart failure Monitor renal indices Renally dose medications and avoid nephrotoxic (4) Elevated troponin Is this a current diagnosis for this admission?: Yes Plan: Patient denies chest pain Likely type II NSTEMI from demand Troponin on presentation 0.243 EKG shows ventricular paced rhythm Cardiology was contacted by ED and recommends medical therapy We will continue to trend cardiac enzymes Continue aspirin, atorvastatin and beta-oanh Consider cardiology evaluation (5) Congestive heart failure Is this a current diagnosis for this admission?: Yes Plan: Currently appears euvolemic Will hold Lasix for now due to signs of volume depletion and LINA Closely monitor her volume status and vital signs will consider restarting home medications after LINA and volume depletion improves (6) Afib Is this a current diagnosis for this admission?: Yes Plan: Currently patient is being paced with heart rate in the 60s Continue metoprolol and anticoagulation with apixaban (7) Benign essential hypertension Is this a current diagnosis for this admission?: Yes Plan: We will hold blood pressure medications for now due to LINA volume depletion - Time Time Spent with patient: 35 or more minutes Total Critical Time (Minutes): 45 Medications reviewed and adjusted accordingly: Yes Anticipated Discharge Disposition: Home with Home Health Anticipated Discharge Timeframe: within 72 hours - Inpatient Certification Medical Necessity: Failure to Improve With Outpatient Therapy, Significant Comorbidiites Make Outpatient Treatment Too Risky, Need Close Monitoring Due to Risk of Patient Decompensation, Need For IV Fluids, Need For Continuous Telemetry Monitoring, Need for IV Antibiotics Post Hospital Care: D/C or Transfer Summary
[2019-12-13] MEDS: RINGERS SOLUTION,LACTATED 1,000 ML IV PRN ×2 (01:17→16:00)
[2019-12-13 05:42] LABS: ANION GAP 11 (5-19); BLOOD UREA NITROGEN 46 mg/dL (7-20); CALCIUM 8.5 mg/dL (8.4-10.2); CARBON DIOXIDE 23 mmol/L (22-30); CHLORIDE 100 mmol/L (98-107); GLUCOSE 126 mg/dL (75-110); POTASSIUM 4.3 mmol/L (3.6-5.0)
[2019-12-13] MEDS: ASPIRIN 81 MG TABLET, CHEWABLE PO SCH (09:04)
[2019-12-13] MEDS: LEVOTHYROXINE SODIUM 0.088 MG TABLET PO SCH (09:05)
[2019-12-13] MEDS: APIXABAN 5 MG TABLET PO SCH ×2 (09:05→21:28)
[2019-12-13] MEDS: TRAMADOL HCL 50 MG TABLET PO PRN ×2 (09:07→18:55)
[2019-12-13] MEDS: LINEZOLID 600 MG/300 ML RTUPB IV SCH ×2 (09:08→21:28)
--- NOTE | 2019-12-13 09:47 | EKG REPORT ---
SEVERITY:- ABNORMAL ECG - VENTRICULAR-PACED RHYTHM : Confirmed by: Riley Roman MD 13-Dec-2019 09:46:05
--- NOTE | 2019-12-13 16:07 | Progress Note ---
Provider Note Provider Note: Patient seen and evaluated by me. Please see H&P done by Dr. Jha for full details of admission. Patient mated for right index finger cellulitis. Blood cultures are now positive for what appears to be MRSA. Patient not finalized yet. Patient is already on Zyvox. I have ordered PVL bilateral upper extremities to look for arterial insufficiency given the nature of her finger wound.
[2019-12-13] MEDS: AMLODIPINE BESYLATE 5 MG TABLET PO SCH (21:28)
[2019-12-13] MEDS: PREGABALIN 50 MG CAPSULE PO SCH (21:28)
[2019-12-14] MEDS: RINGERS SOLUTION,LACTATED 1,000 ML IV PRN ×2 (03:30→15:39)
[2019-12-14] MEDS: TRAMADOL HCL 50 MG TABLET PO PRN ×2 (05:15→18:06)
[2019-12-14] MEDS: LEVOTHYROXINE SODIUM 0.088 MG TABLET PO SCH (05:15)
[2019-12-14 05:41] LABS: HEMATOCRIT 23.9 % (36.0-47.0); MEAN CORPUSCULAR HEMOGLOBIN 27.9 pg (27.0-33.4); MEAN CORPUSCULAR HGB CONC 32.7 g/dL (32.0-36.0); MEAN CORPUSCULAR VOLUME 85 fl (80-97); PLATELET COUNT 164 10^3/uL (150-450); RED CELL DISTRIBUTION WIDTH 16.9 % (11.5-14.0); WHITE BLOOD COUNT 11.2 10^3/uL (4.0-10.5)
[2019-12-14 05:59] LABS: ANION GAP 9 (5-19); BLOOD UREA NITROGEN 41 mg/dL (7-20); CALCIUM 8.3 mg/dL (8.4-10.2); CARBON DIOXIDE 24 mmol/L (22-30); CHLORIDE 100 mmol/L (98-107); GLUCOSE 155 mg/dL (75-110); POTASSIUM 4.4 mmol/L (3.6-5.0)
[2019-12-14 06:20] LABS: HEMOGLOBIN 7.8 g/dL (12.0-15.5)
[2019-12-14 06:23] LABS: ABSOLUTE LYMPHOCYTES# (MANUAL) 0.2 10^3/uL (0.5-4.7); ABSOLUTE MONOCYTES # (MANUAL) 0.6 10^3/uL (0.1-1.4); BASOPHILS % (MANUAL) 0 % (0-2); EOSINOPHILS % (MANUAL) 0 % (0-6); LYMPHOCYTES % (MANUAL) 2 % (13-45); MONOCYTES % (MANUAL) 5 % (3-13); SEGMENTED NEUTROPHILS % (MAN) 93 % (42-78); TOTAL CELLS COUNTED 100
[2019-12-14 06:26] LABS: ANISOCYTOSIS 1+; OVALOCYTES 1+; POIKILOCYTOSIS 1+; SCHISTOCYTES 1+; TEAR DROP CELLS SLIGHT
[2019-12-14 06:27] LABS: PLATELET COMMENT ADEQUATE
[2019-12-14] MEDS ORDERED: FUROSEMIDE 40 MG TABLET PO SCH (08:00)
[2019-12-14] MEDS: PANTOPRAZOLE SODIUM 40 MG TABLET.DR PO SCH ×2 (10:08→18:19)
[2019-12-14] MEDS: APIXABAN 5 MG TABLET PO SCH ×3 (10:10→21:21)
[2019-12-14] MEDS: PREGABALIN 50 MG CAPSULE PO SCH ×2 (10:10→18:18)
[2019-12-14] MEDS: LINEZOLID 600 MG/300 ML RTUPB IV SCH ×2 (10:59→21:06)
[2019-12-14] MEDS: ASPIRIN 81 MG TABLET, CHEWABLE PO SCH (11:00)
[2019-12-14] MEDS: MULTIVITAMIN TABLET PO SCH (11:00)
[2019-12-14] MEDS: CYANOCOBALAMIN (VITAMIN B-12) 1,000 MCG TABLET PO SCH ×2 (11:02→18:22)
--- NOTE | 2019-12-14 11:17 | RADIOLOGY REPORT (SQ) ---
EXAM DESCRIPTION: ARTERIAL UPPER EXTREM UNILAT IMAGES COMPLETED DATE/TIME: 12/13/2019 6:12 pm REASON FOR STUDY: arterial insufficiency COMPARISON: None. TECHNIQUE: Dynamic and static hall scale and color images acquired of the bilateral upper extremity arteries. Additional selected spectral images recorded. Images saved to PACS. LIMITATIONS: None. FINDINGS: RIGHT UPPER EXTREMITY: SUBCLAVIAN: Normal Doppler waveforms. No velocity elevation to suggest stenosis. AXILLARY: Normal Doppler waveforms. No velocity elevation to suggest stenosis. Normal color Doppler evaluation. BRACHIAL: Normal Doppler waveforms. No velocity elevation to suggest stenosis. Normal color Doppler evaluation. RADIAL: Normal Doppler waveforms. No velocity elevation to suggest stenosis. Normal color Doppler e valuation. ULNAR: Normal Doppler waveforms. No velocity elevation to suggest stenosis. Normal color Doppler ev aluation. OTHER: Mild plaque. IMPRESSION: NORMAL right L UPPER EXTREMITY ARTERIAL DOPPLER. No stenoses. Mild plaque. TECHNICAL DOCUMENTATION: JOB ID: [id number] 2010 [employer]- All Rights Reserved Reading location - IP/workstation name: [email or web address]
[2019-12-14] MEDS ORDERED: HYDROMORPHONE HCL 2 MG TABLET PO PRN (15:08)
--- NOTE | 2019-12-14 16:00 | PDOC PROGRESS REPORT ---
Subjective Subjective:: Per Previous Physician: "JEEVAN ADAMS is a 79 year old female with a history of hypertension on anticoagulation, heart failure, hypertension who was seen at the ED a day ago for cellulitis of the right index finger with cold about this afternoon after he had blood culture obtained on that visit grew gram-positive cocci from both bottles. Currently patient reports pain on the affected area, there is also redness and swelling associated with it. Patient also reports low back pain. Of note, she had sacral fracture few months back after a fall and has been on tramadol as needed." 12/14/2019 Patient seems to be a bit improved today although she is certainly not back to her baseline mentation and health. Her blood cultures are growing MRSA 2/2 bottles. She is already on Zyvox. I noticed in the patient's home medications that she is on very strong narcotics which we are currently holding. Unfortunately, hydrocodone and oxycodone are both listed in her allergies as causing hives. I have added very low-dose as needed Dilaudid oral given that she could potentially go through narcotics withdrawal. I have consulted orthopedic surgery to look at her right hand and evaluated for osteomyelitis. PVL upper extremity yesterday did not show any significant arterial stenosis in her right arm. We will get MRI of her right hand in the meantime. Patient has no new complaints. Reason For Visit: CELLULITIS OF RIGHT INDEX FINGER,SEPSIS, Physical Exam Vital Signs: Temp Pulse Resp BP Pulse Ox 97.4 F 60 13 147/55 H 96 12/14/19 12:00 12/14/19 12:00 12/14/19 12:00 12/14/19 12:00 12/14/19 03:53 Intake & Output 12/13/19 12/14/19 12/15/19 06:59 06:59 06:59 Intake Total 2350 3280 Output Total 1725 Balance 2350 1555 Weight 109.7 kg 94.3 kg 94.4 kg Exam: General appearance: PRESENT: no acute distress, well-developed, well-nourished, obese, sleepy and slightly slurred speech but more alert today than yesterday Head exam: PRESENT: atraumatic, normocephalic Eye exam: PRESENT: conjunctiva pink. ABSENT: scleral icterus Mouth exam: PRESENT: moist Respiratory exam: PRESENT: clear to auscultation michael. ABSENT: rales, rhonchi, wheezes Cardiovascular exam: PRESENT: RRR. ABSENT: diastolic murmur, rubs, systolic murmur GI/Abdominal exam: PRESENT: normal bowel sounds, soft. ABSENT: distended, guarding, mass, organolmegaly, rebound, tenderness Neurological exam: PRESENT: alert, awake, oriented to person, oriented to place, oriented to time, oriented to situation Psychiatric exam: PRESENT: appropriate affect, normal mood Skin exam: PRESENT: dry, intact, warm Extremities: Right index finger with distal necrotic wound suspicious for osteom yelitis Results Laboratory Results: 12/14/19 04:54 12/14/19 04:54 12/14/19 12/14/19 12/14/19 04:54 04:54 04:54 WBC 11.2 H RBC 2.80 L Hgb 7.8 L Hct 23.9 L MCV 85 MCH 27.9 MCHC 32.7 RDW 16.9 H Plt Count 164 Seg Neutrophils % Not Reportable Sodium 133.1 L Potassium 4.4 Chloride 100 Carbon Dioxide 24 Anion Gap 9 BUN 41 H Creatinine 1.38 H Est GFR ( Amer) 45 L Glucose 155 H Calcium 8.3 L TSH 3.47 12/12/19 22:00 Blood Blood Culture (PCR) - Final Staphylococcus Aureus 12/12/19 21:50 Blood Blood Culture (PCR) - Final Staphylococcus Aureus 12/12/19 12/13/19 12/13/19 22:00 01:12 04:10 Troponin I 0.245 0.234 0.213 Impressions: Chest X-Ray 12/12/19 21:31 IMPRESSION: No evidence of acute cardiopulmonary disease. Upper Extremity Ultrasound 12/13/19 00:00 IMPRESSION: NORMAL right L UPPER EXTREMITY ARTERIAL DOPPLER. No stenoses. Mild plaque. Assessment and Plan - Diagnosis (1) Cellulitis of right index finger Is this a current diagnosis for this admission?: Yes Plan: Per Previous Physician: "Patient presents with signs of nonpurulent right index finger cellulitis Has marked leukocytosis with left shift Failed outpatient treatment Blood culture growing gram-positive cocci Started on linezolid" Continue linezolid Blood cultures growing MRSA Orthopedic surgery consult CT right hand (2) Acute kidney injury Is this a current diagnosis for this admission?: Yes Plan: Per Previous Physician: "Creatinine has bumped up to 1.86 from a baseline of around 1.4-1.6 We will cautiously hydrate her due to her history of heart failure Monitor renal indices Renally dose medications and avoid nephrotoxic" Trend BMP Creatinine gradually improving (3) Elevated troponin Is this a current diagnosis for this admission?: Yes Plan: Per Previous Physician: "Patient denies chest pain Likely type II NSTEMI from demand Troponin on presentation 0.243 EKG shows ventricular paced rhythm Cardiology was contacted by ED and recommends medical therapy We will continue to trend cardiac enzymes Continue aspirin, atorvastatin and beta-oanh Consider cardiology evaluation" Troponin flat/downtrending Still no chest pain May benefit from stress test outpatient (4) Staphylococcus aureus bacteremia with sepsis Is this a current diagnosis for this admission?: Yes Plan: Per Previous Physician: "Likely source of infection: right index finger cellulitis Blood culture growing gram-positive cocci Has leukocytosis of 19k with left shift Patient hemodynamically stable, lactic acid within the normal limits Patient has been started on linezolid Repeat blood cultures have been obtained and follow-up with results Closely monitor vital signs" Linezolid Source is very likely right index finger cellulitis (5) Congestive heart failure Is this a current diagnosis for this admission?: Yes Plan: Per Previous Physician: "Currently appears euvolemic Will hold Lasix for now due to signs of volume depletion and LINA Closely monitor her volume status and vital signs will consider restarting home medications after LINA and volume depletion improves" Still holding Lasix Stable (6) Afib Is this a current diagnosis for this admission?: Yes Plan: Rate controlled Continue home medications including apixaban (7) Benign essential hypertension Is this a current diagnosis for this admission?: Yes Plan: Stable (8) Chronic anticoagulation Is this a current diagnosis for this admission?: Yes (9) Pacemaker Is this a current diagnosis for this admission?: Yes Plan: Unable to get MRI due to this device - Time Time Spent with patient: 25-34 minutes Medications reviewed and adjusted accordingly: Yes Anticipated Discharge Disposition: Home with Home Health Anticipated Discharge Timeframe: within 72 hours - Inpatient Certification Based on my medical assessment, after consideration of the patient's comorbidities, presenting symptoms, or acuity I expect that the services needed warrant INPATIENT care.: Yes I certify that my determination is in accordance with my understanding of Medicare's requirements for reasonable and necessary INPATIENT services [42 CFR 412.3e].: Yes Medical Necessity: Significant Comorbidiites Make Outpatient Treatment Too Risky, Need Close Monitoring Due to Risk of Patient Decompensation, Need for IV Antibiotics, Risk of Complication if Not Cared For in Hospital, Risk of Diagnosis Which Will Require Inpatient Eval/Care/Monitoring
[2019-12-14] MEDS: METOPROLOL SUCCINATE 25 MG TAB.SR.24H PO SCH (18:11)
[2019-12-14] MEDS: LIDOCAINE 5% (700 MG) TRANSDERMAL ADH..PATCH TP SCH (19:16)
[2019-12-14] MEDS: AMLODIPINE BESYLATE 5 MG TABLET PO SCH ×2 (21:06→21:21)
[2019-12-14] MEDS ORDERED: HYDRALAZINE HCL INJ/PF 20 MG/1 ML SDV IV PRN (21:46)
[2019-12-15] MEDS: RINGERS SOLUTION,LACTATED 1,000 ML IV PRN (05:17)
--- NOTE | 2019-12-15 06:39 | PDOC CONSULTATION ---
Consultation Consult Date: 12/15/19 Provider Consulted: MICAH HARTLEY JR History of Present Illness Admission Date/PCP: 12/13/19 01:08 HAYDER GARCIA Patient complains of: Sepsis, patient currently not verbally appropriate History of Present Illness: JEEVAN ADAMS is a 79 year old female who presented to the emergency department earlier this week with potential cellulitis of the right index finger. Blood cultures grew gram-positive cocci. Patient was admitted for sepsis. She is currently moaning continuously without making coherent words. Unable to obtain a history from her this morning. Apparently she previously reported pain in that area. I am unsure how long this has been a problem at this point. I will reach out to the family later in the morning. Past Medical History Cardiac Medical History: Reports: Atrial Fibrillation, Congestive Heart Failure, Hyperlipidema, Hypertension Pulmonary Medical History: Reports: Bronchitis, Chronic Obstructive Pulmonary Disease (COPD) Denies: Asthma, Tuberculosis Neurological Medical History: Denies: Seizures Endocrine Medical History: Reports: Diabetes Mellitus Type 2, Hypothyroidism GI Medical History: Reports: Gastroesophageal Reflux Disease Denies: Hepatitis, Hiatal Hernia Musculoskeltal Medical History: Reports: Arthritis Psychiatric Medical History: Denies: Depression Hematology: Reports: Anemia - medicated Denies: Sickle Cell Disease Past Surgical History Past Surgical History: Reports: Cholecystectomy, Hysterectomy, Pacemaker Denies: Amputation, Mastectomy Social History Lives with: Family Smoking Status: Never Smoker Frequency of Alcohol Use: None Hx Recreational Drug Use: No Hx Prescription Drug Abuse: No - Advance Directive Resuscitation Status: Full Code Family History Family History: Reviewed & Not Pertinent, Other Parental Family History Reviewed: No Children Family History Reviewed: NA Sibling(s) Family History Reviewed.: NA Medication/Allergy Home Medications: Apixaban [Eliquis 5 mg Tablet] 5 mg PO BID #0 tablet 02/19/14 Lisinopril [Prinivil 5 mg Tablet] 2.5 mg PO DAILY #0 tablet 02/19/14 Doxycycline Hyclate [Vibramycin 100 mg Tablet] 100 mg PO BID #20 tablet MDD FILLED 12/11 FOR 10 DAY SUPPLY 12/12/19 Acetaminophen [Acetaminophen Extra Strength] 1,000 mg PO TID 12/13/19 Amlodipine Besylate [Norvasc 5 mg Tablet] 5 mg PO DAILY 12/13/19 Cyanocobalamin (Vitamin B-12) [Vitamin B-12 1000 Mcg Tablet] 5,000 mcg PO DAILY 12/13/19 Desvenlafaxine Succinate [Pristiq ER] 50 mg PO DAILY 12/13/19 Duloxetine HCl [Cymbalta 30 mg Capsule.dr] 30 mg PO DAILY 12/13/19 Furosemide [Lasix 40 mg Tablet] 40 mg PO QAM 12/13/19 Lactobacillus Acidophilus [Probiotic Acidophilus] 1 each PO DAILY 12/13/19 Levothyroxine Sodium [Synthroid 0.075 mg Tablet] 0.075 mg PO Q6AM 12/13/19 Lidocaine [Lidoderm 5% (700 mg) Transdermal Patch] 1 patch TP DAILY 12/13/19 Metoprolol Succinate [Toprol Xl 25 mg Tab.sr] 25 mg PO DAILY 12/13/19 Multivitamin [Tab-A-Suma (Multiple Vitamin) Tablet] 1 tab PO DAILY 12/13/19 Ondansetron [Zofran Odt 4 mg Tablet] 12 mg PO Q8HP PRN 12/13/19 Pantoprazole Sodium [Protonix [address] Tablet] 40 mg PO BID 12/13/19 Pregabalin [Lyrica 50 Mg Capsule] 50 mg PO BID MDD 150 MG 12/13/19 Tapentadol HCl [Nucynta ER] 100 mg PO Q12 12/13/19 Tramadol HCl [Ultram 50 mg Tablet] 50 mg PO Q6HP PRN MDD FILLED 12/11 FOR 10 DAY SUPPLY 12/13/19 Allergies/Adverse Reactions: hydrocodone [Hydrocodone] Allergy (Mild, Verified 02/12/14 05:53) Hives oxycodone HCl [From Percocet] Allergy (Mild, Verified 02/12/14 05:53) Hives trazodone [Trazodone] Allergy (Verified 02/12/14 05:53) Review of Systems ROS unobtainable: Due to mental status Physical Exam Vital Signs: Temp Pulse Resp BP Pulse Ox 97.7 F 59 L 20 171/50 H 100 12/14/19 23:54 12/15/19 03:46 12/14/19 23:54 12/15/19 03:46 12/15/19 03:46 Intake & Output 12/13/19 12/14/19 12/15/19 06:59 06:59 06:59 Intake Total 2350 3280 2830 Output Total 1725 1810 Balance 2350 1555 1020 Weight 109.7 kg 94.3 kg 94.4 kg Physical Exam: General appearance: PRESENT: Obese, not verbally cooperative. Head exam: PRESENT: atraumatic, normocephalic Eye exam: PRESENT: EOMI Ear exam: PRESENT: normal external ear exam Mouth exam: PRESENT: neck supple Neck exam: ABSENT: tracheal deviation Respiratory exam: PRESENT: symmetrical, unlabored. ABSENT: accessory muscle use, wheezes Pulses: PRESENT: normal radial pulses, normal dorsalis pedis pulse Vascular exam: PRESENT: normal capillary refill GI/Abdominal exam: ABSENT: distended, firm Neurological exam: PRESENT: Not currently oriented, does not appropriately respond to verbal cues. Psychiatric exam: PRESENT: Repetitive moaning. ABSENT: agitated Focused psych exam: ABSENT: catatonic Skin exam: PRESENT: intact. ABSENT: dry All as above aside from that noted in the HPI and the following: Difficult to obtain a full exam due to patient noncompliance The right hand has no signs of overt infection. There is some ecchymosis associated with very thin skin and apparent use of blood thinners. The index finger has a area of hardened tissue at the fingertip without signs of erythema or purulence, no palpable fluctuance. The distal fingertip has the appearance of dry gangrene. The associated fingertips have less than 2-second capillary refill. There is no proximal tracking of erythema or substantial swelling. Results Laboratory Results: 12/14/19 04:54 12/14/19 04:54 12/14/19 04:54 TSH 3.47 12/12/19 22:00 Blood Blood Culture (PCR) - Final Staphylococcus Aureus 12/12/19 21:50 Blood Blood Culture (PCR) - Final Staphylococcus Aureus 12/12/19 12/13/19 12/13/19 22:00 01:12 04:10 Troponin I 0.245 0.234 0.213 Impressions: Chest X-Ray 12/12/19 21:31 IMPRESSION: No evidence of acute cardiopulmonary disease. Upper Extremity Ultrasound 12/13/19 00:00 IMPRESSION: NORMAL right L UPPER EXTREMITY ARTERIAL DOPPLER. No stenoses. Mild plaque. Assessment & Plan - Diagnosis (1) Gangrene of finger of right hand Is this a current diagnosis for this admission?: Yes Plan: At this time the finger does not show overt signs of active infection however there seems to be an ischemic fingertip of the distal 4 mm of her index. This also coincides with bone resorption seen on x-ray. There is no signs of proximal tracking of active infection however I cannot rule out that this may be an infectious process. I will have a discussion with the family today in regards to operative consent. Given that there is not another current suspicious source for her sepsis, pa rtial amputation of the finger may be warranted. We will place the patient on the schedule for tomorrow Keep n.p.o. tonight Continue antibiotics
[2019-12-15] MEDS: LEVOTHYROXINE SODIUM 0.088 MG TABLET PO SCH (06:54)
[2019-12-15] MEDS ORDERED: GLUCAGON,HUMAN RECOMB 1 MG INJ SUBCUT PRN (06:55)
[2019-12-15] MEDS ORDERED: DEXTROSE 40% GEL 15 GM TUBE PO PRN ×2 (06:55)
[2019-12-15] MEDS ORDERED: DEXTROSE 50%-WATER 25 GM/50 ML DISP.SYRIN IV PRN ×2 (06:55)
[2019-12-15] MEDS ORDERED: RINGERS SOLUTION,LACTATED 1,000 ML IV PRN (07:33)
--- NOTE | 2019-12-15 09:15 | RADIOLOGY REPORT (SQ) ---
EXAM DESCRIPTION: CT RT UPPER EXTREMITY WITHOUT IMAGES COMPLETED DATE/TIME: 12/14/2019 5:51 pm REASON FOR STUDY: Osteomyelitis index finger COMPARISON: None. TECHNIQUE: Axial imaging performed through the right hand with reformatted coronal and sagittal imag ing windowed for bone and soft tissues. Images saved to PACS. 3D IMAGING: Were 3D images as MIP, SSD, or volume rendering performed at the work station? No All CT scanners at this facility use dose modulation, iterative reconstruction, and/or weight based d osing when appropriate to reduce radiation dose to as low as reasonably achievable (ALARA). [facility]: Dose Right [facility]: CareDose [facility]: Dose Right [facility]: Teradose 4D [facility]: [employer] LIMITATIONS: None. RADIATION DOSE: CT Rad equipment meets quality standard of care and radiation dose reduction techniq ues were employed. CTDIvol: 2.6 mGy. DLP: 41 mGy-cm. mGy. FINDINGS: SOFT TISSUES: No obvious swelling or foreign body. BONES: Degenerative changes of the DIP joints diffusely. No finding to suggest osteomyelitis. MINERALIZATION: Normal. OTHER: No other significant finding. IMPRESSION: No findings of osteomyelitis in index finger. TECHNICAL DOCUMENTATION: JOB ID: [id number] Quality ID # [id number]: Final reports with documentation of one or more dose reduction techniques (e.g., Au tomated exposure control, adjustment of the mA and/or kV according to patient size, use of iterative reconstruction technique) 2010 [employer]- All Rights Reserved Reading location - IP/workstation name: [email or web address]
[2019-12-15] MEDS ORDERED: CLONIDINE 0.1 MG/24 HR PATCH.TDWK TD SCH (10:00)
[2019-12-15] MEDS: HYDROMORPHONE HCL INJ/PF 2 MG/ML AMPULE IV PRN ×2 (11:38→18:03)
[2019-12-15] MEDS: LINEZOLID 600 MG/300 ML RTUPB IV SCH ×2 (11:44→22:09)
[2019-12-15] MEDS: APIXABAN 5 MG TABLET PO SCH (13:15)
[2019-12-15] MEDS: HEPARIN SOD (PORCINE) 5,000 UNIT/ML 1 ML VIAL SUBCUT SCH ×2 (14:24→22:09)
--- NOTE | 2019-12-15 15:00 | PDOC PROGRESS REPORT ---
Subjective Subjective:: Per Previous Physician: "JEEVAN ADAMS is a 79 year old female with a history of hypertension on anticoagulation, heart failure, hypertension who was seen at the ED a day ago for cellulitis of the right index finger with cold about this afternoon after he had blood culture obtained on that visit grew gram-positive cocci from both bottles. Currently patient reports pain on the affected area, there is also redness and swelling associated with it. Patient also reports low back pain. Of note, she had sacral fracture few months back after a fall and has been on tramadol as needed." 12/14/2019 Patient seems to be a bit improved today although she is certainly not back to her baseline mentation and health. Her blood cultures are growing MRSA 2/2 bottles. She is already on Zyvox. I noticed in the patient's home medications that she is on very strong narcotics which we are currently holding. Unfortunately, hydrocodone and oxycodone are both listed in her allergies as causing hives. I have added very low-dose as needed Dilaudid oral given that she could potentially go through narcotics withdrawal. I have consulted orthopedic surgery to look at her right hand and evaluated for osteomyelitis. PVL upper extremity yesterday did not show any significant arterial stenosis in her right arm. We will get MRI of her right hand in the meantime. Patient has no new complaints. 12/15/2019 Patient seen moaning and making strange sounds today. Per daughter, this is what the patient how the patient behaves when she is in pain and does not have adequate pain medication. I have prescribed her some narcotics but she has been too confused to take oral medications. I discussed with nursing that we will c hange this to IV narcotics. Patient may be a good candidate for a fentanyl patch but this should be evaluated by tumbling barrel painter. We will consult pain management as well as palliative care per daughter request. I will get an echocardiogram due to having MRSA in the blood. According to patient's daughter, she has been told that she is not a candidate for any surgeries. Patient's daughter is an RN at a half-way and would like the patient evaluated by palliative care. Assuming that the patient has MRSA in her blood due to an infected right index finger with osteomyelitis that is unable to be amputated due to surgical risk, the patient would certainly need to be evaluated for hospice care as she will very likely continue to seed MRSA and to her blood for the remainder of her life. Reason For Visit: CELLULITIS OF RIGHT INDEX FINGER,SEPSIS, Physical Exam Vital Signs: Temp Pulse Resp BP Pulse Ox 98.0 F 59 L 19 163/52 H 99 12/15/19 11:54 12/15/19 11:54 12/15/19 11:54 12/15/19 11:54 12/15/19 11:54 Intake & Output 12/14/19 12/15/19 12/16/19 06:59 06:59 06:59 Intake Total 3280 2940 Output Total 1725 2030 300 Balance 1555 910 -300 Weight 94.3 kg 95 kg Exam: General appearance: PRESENT: no acute distress, well-developed, well-nourished, obese, lying and making strange sounds "oh way oh way oh way" Head exam: PRESENT: atraumatic, normocephalic Eye exam: PRESENT: conjunctiva pink. ABSENT: scleral icterus Mouth exam: PRESENT: moist Respiratory exam: PRESENT: clear to auscultation michael. ABSENT: rales, rhonchi, wheezes Cardiovascular exam: PRESENT: RRR. ABSENT: diastolic murmur, rubs, systolic murmur GI/Abdominal exam: PRESENT: normal bowel sounds, soft. ABSENT: distended, guarding, mass, organolmegaly, rebound, tenderness Neurological exam: PRESENT: alert, awake, oriented to person, oriented to place, oriented to time, oriented to situation Psychiatric exam: PRESENT: appropriate affect, normal mood Skin exam: PRESENT: dry, intact, warm Extremities: Right index finger with distal necrotic wound suspicious for osteomyelitis, mildly delayed cap refill Results Laboratory Results: 12/14/19 04:54 12/14/19 04:54 12/12/19 22:00 Blood Blood Culture (PCR) - Final Staphylococcus Aureus 12/12/19 21:50 Blood Blood Culture (PCR) - Final Staphylococcus Aureus 12/12/19 12/13/19 12/13/19 22:00 01:12 04:10 Troponin I 0.245 0.234 0.213 Impressions: Chest X-Ray 12/12/19 21:31 IMPRESSION: No evidence of acute cardiopulmonary disease. Upper Extremity Ultrasound 12/13/19 00:00 IMPRESSION: NORMAL right L UPPER EXTREMITY ARTERIAL DOPPLER. No stenoses. Mild plaque. Upper Extremity CT 12/14/19 00:00 IMPRESSION: No findings of osteomyelitis in index finger. Assessment and Plan - Diagnosis (1) Cellulitis of right index finger Is this a current diagnosis for this admission?: Yes (2) Acute kidney injury Is this a current diagnosis for this admission?: Yes (3) Elevated troponin Is this a current diagnosis for this admission?: Yes (4) Staphylococcus aureus bacteremia with sepsis Is this a current diagnosis for this admission?: Yes (5) Congestive heart failure Is this a current diagnosis for this admission?: Yes (6) Afib Is this a current diagnosis for this admission?: Yes (7) Benign essential hypertension Is this a current diagnosis for this admission?: Yes (8) Chronic anticoagulation Is this a current diagnosis for this admission?: Yes (9) Pacemaker Is this a current diagnosis for this admission?: Yes (10) Chronic pain syndrome Is this a current diagnosis for this admission?: Yes Plan: Patient takes Nucynta at home Reportedly has allergy to hydrocodone and oxycodone IV Dilaudid as needed Pain management consult Palliative care consult requested by daughter - Plan Summary Summary: (1) Cellulitis of right index finger Is this a current diagnosis for this admission?: Yes Plan: Per Previous Physician: "Patient presents with signs of nonpurulent right index finger cellulitis Has marked leukocytosis with left shift Failed outpatient treatment Blood culture growing gram-positive cocci Started on linezolid" Continue linezolid Blood cultures growing MRSA Orthopedic surgery consult: Per daughter, patient is not a safe surgical candidate and has been denied surgery in the past CT right hand: No evidence of osteomyelitis If finger is the source of MRSA in the patient's bloodstream and we cannot establish good source control due to patient not being a good surgical candidate, hospice will need to be addressed as patient will continue to have bacteremia and sepsis (2) Acute kidney injury Is this a current diagnosis for this admission?: Yes Plan: Per Previous Physician: "Creatinine has bumped up to 1.86 from a baseline of around 1.4-1.6 We will cautiously hydrate her due to her history of heart failure Monitor renal indices Renally dose medications and avoid nephrotoxic" Trend BMP Likely due to sepsis Creatinine gradually improving (3) Elevated troponin Is this a current diagnosis for this admission?: Yes Plan: Per Previous Physician: "Patient denies chest pain Likely type II NSTEMI from demand Troponin on presentation 0.243 EKG shows ventricular paced rhythm Cardiology was contacted by ED and recommends medical therapy We will continue to trend cardiac enzymes Continue aspirin, atorvastatin and beta-oanh Consider cardiology evaluation" Troponin flat/downtrending Still no chest pain May benefit from stress test outpatient (4) Staphylococcus aureus bacteremia with sepsis Is this a current diagnosis for this admission?: Yes Plan: Per Previous Physician: "Likely source of infection: right index finger cellulitis Blood culture growing gram-positive cocci Has leukocytosis of 19k with left shift Patient hemodynamically stable, lactic acid within the normal limits Patient has been started on linezolid Repeat blood cultures have been obtained and follow-up with results Closely monitor vital signs" Linezolid Source is very likely right index finger cellulitis (5) Congestive heart failure Is this a current diagnosis for this admission?: Yes Plan: Per Previous Physician: "Currently appears euvolemic Will hold Lasix for now due to signs of volume depletion and LINA Closely monitor her volume status and vital signs will consider restarting home medications after LINA and volume depletion improves" Still holding Lasix Stable (6) Afib Is this a current diagnosis for this admission?: Yes Plan: Rate controlled Continue home medications including apixaban (7) Benign essential hypertension Is this a current diagnosis for this admission?: Yes Plan: Stable (8) Chronic anticoagulation Is this a current diagnosis for this admission?: Yes (9) Pacemaker Is this a current diagnosis for this admission?: Yes Plan: Unable to get MRI due to this device - Time Time Spent with patient: 25-34 minutes Medications reviewed and adjusted accordingly: Yes Anticipated Discharge Disposition: Home with Hospice Anticipated Discharge Timeframe: within 72 hours - Inpatient Certification Based on my medical assessment, after consideration of the patient's comorbidities, presenting symptoms, or acuity I expect that the services needed warrant INPATIENT care.: Yes I certify that my determination is in accordance with my understanding of [facility] 's requirements for reasonable and necessary INPATIENT services [42 CFR 412.3e].: Yes Medical Necessity: Significant Comorbidiites Make Outpatient Treatment Too Risky, Need Close Monitoring Due to Risk of Patient Decompensation, Need for Pain Control, Need for IV Antibiotics, Risk of Complication if Not Cared For in Hospital, Risk of Diagnosis Which Will Require Inpatient Eval/Care/Monitoring
[2019-12-15] MEDS: PANTOPRAZOLE SODIUM 40 MG TABLET.DR PO SCH ×2 (18:16→18:26)
[2019-12-15] MEDS: METOPROLOL SUCCINATE 25 MG TAB.SR.24H PO SCH (18:16)
[2019-12-15] MEDS: PREGABALIN 50 MG CAPSULE PO SCH (18:25)
[2019-12-15] MEDS: LIDOCAINE 5% (700 MG) TRANSDERMAL ADH..PATCH TP SCH (18:25)
[2019-12-15] MEDS: ASPIRIN 81 MG TABLET, CHEWABLE PO SCH (18:25)
[2019-12-15] MEDS: MULTIVITAMIN TABLET PO SCH (18:26)
[2019-12-15] MEDS: CYANOCOBALAMIN (VITAMIN B-12) 1,000 MCG TABLET PO SCH (18:26)
[2019-12-15] MEDS ORDERED: BISACODYL 5 MG TABEC PO PRN (19:42)
[2019-12-15] MEDS ORDERED: BISACODYL 10 MG SUPP.RECT PR PRN (19:43)
[2019-12-15] MEDS ORDERED: NA PHOS,M-B/NA PHOS,DI-BA (ADULT) 133 ML ENEMA PR PRN (19:44)
[2019-12-15] MEDS: AMLODIPINE BESYLATE 5 MG TABLET PO SCH (22:09)
--- NOTE | 2019-12-15 23:25 | RADIOLOGY REPORT (SQ) ---
CT HEAD WITHOUT IV CONTRAST HISTORY: AMS. COMPARISON: None. TECHNIQUE: CT scan of the brain was performed without IV contrast. This exam was performed according to our departmental dose-optimization program, which includes automated exposure control, adjustment of the mA and/or kV according to patient size and/or use of iterative reconstruction technique. FINDINGS: Diffuse involutional changes are present. There are scattered areas of hypoattenuation within the periventricular white matter, which likely represent chronic microvascular ischemia. Old area of encephalomalacia in the right occipital lobe with ex vacuo dilatation of the adjacent lateral ventricle. Old lacunar infarct in the right basal ganglia. No evidence of acute infarction, intracranial hemorrhage, extra-axial fluid collection, or midline shift. No air-fluid levels are seen in the paranasal sinuses to suggest acute sinusitis. No depressed skull fracture. IMPRESSION: 1. No acute intracranial findings. 2. Senescent changes with chronic microvascular ischemia.
[2019-12-16] MEDS: HYDROMORPHONE HCL INJ/PF 2 MG/ML AMPULE IV PRN ×2 (00:34→23:10)
[2019-12-16] MEDS: HEPARIN SOD (PORCINE) 5,000 UNIT/ML 1 ML VIAL SUBCUT SCH ×3 (05:48→23:10)
[2019-12-16] MEDS: LEVOTHYROXINE SODIUM 0.088 MG TABLET PO SCH (05:49)
--- NOTE | 2019-12-16 07:50 | PDOC PROGRESS REPORT ---
Subjective Progress Note for:: 12/16/19 Subjective:: Patient still without appropriate verbal communication. Moaning continuously in her room, repetitive inarticulate sounds. Reason For Visit: CELLULITIS OF RIGHT INDEX FINGER,SEPSIS, Physical Exam Vital Signs: Temp Pulse Resp BP Pulse Ox 97.5 F 60 18 186/68 H 100 12/16/19 03:33 12/16/19 03:33 12/16/19 03:33 12/16/19 03:33 12/16/19 03:33 Intake & Output 12/15/19 12/16/19 12/17/19 06:59 06:59 06:59 Intake Total 2940 600 Output Total 2029 1140 Balance 910 -540 Weight 95 kg 89.2 kg Physical Exam: Not alert or oriented to person place or time. Not verbally appropriately communicative Right upper extremity Area of dry necrotic tissue at the right index fingertip. No surrounding erythema or purulence. No swelling of the index finger as compared to associated digits, no sign of active infection at this time. Results Laboratory Results: 12/14/19 04:54 12/14/19 04:54 12/12/19 21:50 Blood Blood Culture (PCR) - Final Staphylococcus Aureus 12/12/19 21:50 Blood Blood Culture - Final Mrsa (Meth Resis Staph Aureus) 12/12/19 22:00 Blood Blood Culture (PCR) - Final Staphylococcus Aureus 12/12/19 22:00 Blood Blood Culture - Final Mrsa (Meth Resis Staph Aureus) 12/14/19 18:40 Blood Blood Culture (PCR) - Final Staphylococcus Aureus 12/14/19 18:47 Blood Blood Culture (PCR) - Final Staphylococcus Aureus 12/12/19 12/13/19 12/13/19 22:00 01:12 04:10 Troponin I 0.245 0.234 0.213 Impressions: Chest X-Ray 12/12/19 21:31 IMPRESSION: No evidence of acute cardiopulmonary disease. Upper Extremity Ultrasound 12/13/19 00:00 IMPRESSION: NORMAL right L UPPER EXTREMITY ARTERIAL DOPPLER. No stenoses. Mild plaque. Upper Extremity CT 12/14/19 00:00 IMPRESSION: No findings of osteomyelitis in index finger. Head CT 12/15/19 00:00 IMPRESSION: 1. No acute intracranial findings. 2. Senescent changes with chronic microvascular ischemia. Assessment & Plan - Diagnosis (1) Gangrene of finger of right hand Is this a current diagnosis for this admission?: Yes Plan: I had a discussion with the patient's caregivers yesterday on the telephone who understand that a source has yet to be identified for the patient's sepsis and the potentially it is associated with her right index finger. Admittedly, the finger does not appear grossly infected at this time and I doubt that this is the true source however we do not have another source to work with. She has necrotic tissue at her fingertip that will either self amputate or be facilitated by operative debridement. I discussed this with the family who is refused surgery at this time given the patient's health status. Will follow. - Time Time Spent with patient: Less than 15 minutes
[2019-12-16] MEDS ORDERED: RINGERS SOLUTION,LACTATED 1,000 ML IV PRN (09:03)
[2019-12-16 10:41] LABS: MEAN CORPUSCULAR HEMOGLOBIN 27.4 pg (27.0-33.4); MEAN CORPUSCULAR HGB CONC 32.2 g/dL (32.0-36.0); MEAN CORPUSCULAR VOLUME 85 fl (80-97); PLATELET COUNT 175 10^3/uL (150-450); RED BLOOD COUNT 3.29 10^6/uL (3.72-5.28); RED CELL DISTRIBUTION WIDTH 17.4 % (11.5-14.0); WHITE BLOOD COUNT 12.2 10^3/uL (4.0-10.5)
[2019-12-16] MEDS: PREGABALIN 50 MG CAPSULE PO SCH ×2 (10:55→18:09)
[2019-12-16] MEDS: MULTIVITAMIN TABLET PO SCH (10:55)
[2019-12-16] MEDS: PANTOPRAZOLE SODIUM 40 MG TABLET.DR PO SCH ×2 (10:55→18:14)
[2019-12-16] MEDS: LIDOCAINE 5% (700 MG) TRANSDERMAL ADH..PATCH TP SCH (10:55)
[2019-12-16] MEDS: METOPROLOL SUCCINATE 25 MG TAB.SR.24H PO SCH (10:55)
[2019-12-16] MEDS: ASPIRIN 81 MG TABLET, CHEWABLE PO SCH (10:55)
[2019-12-16] MEDS: CYANOCOBALAMIN (VITAMIN B-12) 1,000 MCG TABLET PO SCH (10:56)
[2019-12-16 10:57] LABS: ABSOLUTE LYMPHOCYTES# (MANUAL) 0.2 10^3/uL (0.5-4.7); ABSOLUTE MONOCYTES # (MANUAL) 1.6 10^3/uL (0.1-1.4); BASOPHILS % (MANUAL) 1 % (0-2); EOSINOPHILS % (MANUAL) 0 % (0-6); LYMPHOCYTES % (MANUAL) 2 % (13-45); MONOCYTES % (MANUAL) 13 % (3-13); SEGMENTED NEUTROPHILS % (MAN) 84 % (42-78); TOTAL CELLS COUNTED 100
[2019-12-16 10:58] LABS: ANISOCYTOSIS 2+; OVALOCYTES SLIGHT; PLATELET COMMENT ADEQUATE; POIKILOCYTOSIS SLIGHT
[2019-12-16] MEDS ORDERED: CLONIDINE 0.2 MG/24 HR PATCH.TDWK TD SCH (11:00)
[2019-12-16 11:01] LABS: ANION GAP 12 (5-19); BLOOD UREA NITROGEN 24 mg/dL (7-20); CALCIUM 8.7 mg/dL (8.4-10.2); CARBON DIOXIDE 21 mmol/L (22-30); CHLORIDE 101 mmol/L (98-107); GLUCOSE 154 mg/dL (75-110); POTASSIUM 4.1 mmol/L (3.6-5.0)
[2019-12-16] MEDS: LINEZOLID 600 MG/300 ML RTUPB IV SCH (11:04)
[2019-12-16] MEDS ORDERED: HYDROMORPHONE HCL INJ/PF 2 MG/ML AMPULE IV PRN (13:21)
--- NOTE | 2019-12-16 14:38 | Progress Note ---
Provider Note Provider Note: [facility] ID teleconsultation: Patient's chart was thoroughly reviewed. Patient not examined. This is a 79-year-old female with a history of a pacemaker who apparently was recently evaluated for a right index finger infection and was placed on doxycycline however she was called back to the emergency room due to positive blood cultures due to MRSA. She has been afebrile with an initial WBC of 19.6 now trended down to 12. She had an acute kidney injury with a creatinine of 1.86 which has now trended down to 0.9. A source for the MRSA has yet to be identified but there was some concern for her right index finger. A CT without contrast did not demonstrate osteomyelitis or soft tissue infection. She also had arterial Dopplers which did not demonstrate arterial issues as there is a concern that this represents dry gangrene. What is not clear to me is whether or not this looks like a Janeway lesion. She is at high risk for endovascular infection given her pacemaker. She is altered and moaning in pain but per the notes appears to be nonfocal. There are some reports that she is complaining of back pain. Assessment/recommendations: This patient has high-grade MRSA bacteremia and is concerning for pacemaker involvement. She will need a TTE and if this is negative a SUSANA given her cardiac device. Does her finger lesion resemble a Janeway lesion or Osler node- it appears as though this may be the case? If not, she will need an MRI for further evaluation assuming her pacemaker is compatible. If pacemaker not compatible would proceed with a CT with contrast given that her creatinine has normalized. Please discontinue linezolid given its bacteriostatic nature it is not recommended for high-grade bacteremia. Please start either vancomycin pharmacy to dose or daptomycin 8 mg/kg daily. Given her age and BMI vancomycin dosing may be difficult. Given her back pain she will need imaging if this is focal, ideally with an MRI but if not with a contrasted CT study.
--- NOTE | 2019-12-16 14:57 | RADIOLOGY REPORT (SQ) ---
EXAM DESCRIPTION: CT CHEST WITHOUT IMAGES COMPLETED DATE/TIME: 12/16/2019 2:24 pm REASON FOR STUDY: MRSA sepsis, unknown source COMPARISON: None. TECHNIQUE: CT scan performed of the chest without intravenous contrast. Images reviewed with lung, soft tissue and bone windows. Reconstructed coronal and sagittal MPR images reviewed. All images st ored on PACS. All CT scanners at this facility use dose modulation, iterative reconstruction, and/or weight based d osing when appropriate to reduce radiation dose to as low as reasonably achievable (ALARA). [facility]: Dose Right [facility]: CareDose [facility]: Dose Right [facility]: Teradose 4D [facility]: [employer] RADIATION DOSE: Total exam DLP: 2371.71 mGy. LIMITATIONS: No technical limitations. FINDINGS: LUNGS AND PLEURA: Bilateral mild to moderate pleural effusions. Compressive atelectasis and or infiltrates in the lower lobes left slightly more so than the right. No pneumothorax. The ce ntral airways are clear. HILAR AND MEDIASTINAL STRUCTURES: No identified masses or abnormal nodes. No obvious aneurysm. HEART AND VASCULAR STRUCTURES: Atherosclerotic changes involving the thoracic aorta. Cardiomegaly. No aneurysm. No pericardial effusion. UPPER ABDOMEN: Please see CT abdomen and pelvis report. THYROID AND OTHER SOFT TISSUES: No masses. No adenopathy. BONES: No significant finding. HARDWARE: Prior TAVR prostheses and cardiac pacemaker/defibrillator. OTHER: No other significant findings. IMPRESSION: 1. Bilateral mild to moderate pleural effusions and compressive atelectatic changes and /or infiltrates in the lower lobes, left slightly more so. 2. Cardiomegaly. 3. Additional findings as above. TECHNICAL DOCUMENTATION: JOB ID: [id number] Quality ID # [id number]: Final reports with documentation of one or more dose reduction techniques (e.g., Au tomated exposure control, adjustment of the mA and/or kV according to patient size, use of iterative reconstruction technique) 2010 [employer]- All Rights Reserved Reading location - IP/workstation name: [email or web address]
--- NOTE | 2019-12-16 15:10 | RADIOLOGY REPORT (SQ) ---
EXAM DESCRIPTION: CT ABD/PELVIS NO ORAL OR IV IMAGES COMPLETED DATE/TIME: 12/16/2019 2:24 pm REASON FOR STUDY: MRSA sepsis, unknown source COMPARISON: None. TECHNIQUE: CT scan of the abdomen and pelvis performed without intravenous or oral contrast. Images reviewed with lung, soft tissue, and bone windows. Reconstructed coronal and sagittal MPR images revi ewed. All images stored on PACS. All CT scanners at this facility use dose modulation, iterative reconstruction, and/or weight based d osing when appropriate to reduce radiation dose to as low as reasonably achievable (ALARA). [facility]: Dose Right [facility]: CareDose [facility]: Dose Right [facility]: Teradose 4D [facility]: [employer] RADIATION DOSE: Total exam DLP: 2371.71 mGy. LIMITATIONS: Motion artifact limits examination. None. FINDINGS: LOWER CHEST: Please see CT chest report. NON-CONTRASTED LIVER, SPLEEN, ADRENALS: Evaluation limited by lack of IV contrast. No identified sign ificant masses. PANCREAS: Fatty infiltration of the pancreas. No masses. No peripancreatic inflammatory changes. GALLBLADDER: No identified stones by CT criteria. No inflammatory changes to suggest cholecystitis. RIGHT KIDNEY AND URETER: No suspicious masses. Assessment limited by lack of IV contrast. No signif icant calcifications. No hydronephrosis or hydroureter. LEFT KIDNEY AND URETER: Atrophic appearing kidney. No suspicious masses. Assessment limited by lack of IV contrast. No significant calcifications. No hydronephrosis or hydroureter. AORTA AND RETROPERITONEUM: Atherosclerotic changes involving the abdominal aorta and branch vessels. No aneurysm. No retroperitoneal masses or adenopathy. BOWEL AND PERITONEAL CAVITY: Gastric bypass surgery suggested. No free fluid. APPENDIX: Not visualized. PELVIS, BLADDER, AND ABDOMINAL WALL: Mild low attenuated soft tissue density in the presacral region , sagittal image 44, series 602 may represent phlegmon. No evidence of abscess. No free fluid. Prior ventral abdominal wall hernia repair. Vinson catheter. Prior hysterectomy. BONES: Levoconvex scoliosis and degenerative changes involving the lumbar spine. OTHER: Fatty atrophy gluteal muscles more so on the right. Hiatal hernia. IMPRESSION: 1. Mild low attenuated soft tissue density in the presacral region may be on the basis of phlegmon. No evidence of abscess. No free fluid. 2. Atrophic appearing left kidney. 3. Additional findings as above. COMMENT: Quality ID # [id number]: Final reports with documentation of one or more dose reduction techniques (e.g., Automated exposure control, adjustment of the mA and/or kV according to patient size, use of iterative reconstruction technique) TECHNICAL DOCUMENTATION: JOB ID: [id number] 2010 [employer]- All Rights Reserved Reading location - IP/workstation name: [email or web address]
[2019-12-16] MEDS ORDERED: LABETALOL HCL INJ 20 MG/4 ML DISP.SYRIN IV PRN (16:27)
[2019-12-16] MEDS ORDERED: CEFEPIME 2 GM/D5W RTU 2 GM/50 ML RTUPB IV SCH (16:30)
[2019-12-16] MEDS: FUROSEMIDE INJ/PF 20 MG/2 ML SDV IV SCH (18:10)
--- NOTE | 2019-12-16 18:28 | PDOC PROGRESS REPORT ---
Subjective Subjective:: Per Previous Physician: "JEEVAN ADAMS is a 79 year old female with a history of hypertension on anticoagulation, heart failure, hypertension who was seen at the ED a day ago for cellulitis of the right index finger with cold about this afternoon after he had blood culture obtained on that visit grew gram-positive cocci from both bottles. Currently patient reports pain on the affected area, there is also redness and swelling associated with it. Patient also reports low back pain. Of note, she had sacral fracture few months back after a fall and has been on tramadol as needed." 12/14/2019 Patient seems to be a bit improved today although she is certainly not back to her baseline mentation and health. Her blood cultures are growing MRSA 2/2 bottles. She is already on Zyvox. I noticed in the patient's home medications that she is on very strong narcotics which we are currently holding. Unfortunately, hydrocodone and oxycodone are both listed in her allergies as causing hives. I have added very low-dose as needed Dilaudid oral given that she could potentially go through narcotics withdrawal. I have consulted orthopedic surgery to look at her right hand and evaluated for osteomyelitis. PVL upper extremity yesterday did not show any significant arterial stenosis in her right arm. We will get MRI of her right hand in the meantime. Patient has no new complaints. 12/15/2019 Patient seen moaning and making strange sounds today. Per daughter, this is what the patient how the patient behaves when she is in pain and does not have adequate pain medication. I have prescribed her some narcotics but she has been too confused to take oral medications. I discussed with nursing that we will c hange this to IV narcotics. Patient may be a good candidate for a fentanyl patch but this should be evaluated by paintless dent repair technician. We will consult pain management as well as palliative care per daughter request. I will get an echocardiogram due to having MRSA in the blood. According to patient's daughter, she has been told that she is not a candidate for any surgeries. Patient's daughter is an RN at a group home and would like the patient evaluated by palliative care. Assuming that the patient has MRSA in her blood due to an infected right index finger with osteomyelitis that is unable to be amputated due to surgical risk, the patient would certainly need to be evaluated for hospice care as she will very likely continue to seed MRSA and to her blood for the remainder of her life. 12/16/2019 Long discussion with pt's family regarding the course so far and the plan going forward. I consulted ID and they are recommending additional imaging including a SUSANA. They are concerned that the patient may have an infected pacemaker and I agree that this would certainly portend a very poor prognosis for a patient of advanced age with other comorbidities such as this. I have started the transfer process to get the patient to [facility] however they state they are at [facility] and are unsure of their availability in the near future. Patient's family requested that she go to [facility] because her precision farming coordinator has privileges at that hospital and could potentially see her there. In the meantime, I will get a chest CT with contrast per ID request as well as a TTE. Per Harriet, patient's family, patient has a long history of scratching open wounds on her skin due to the itching that occurs from her narcotics and she is concerned that this may have introduced MRSA into the patient's bloodstream. Also discussed the case with orthopedics today and they are willing to do a fingertip amputation of the right index finger with conscious sedation and a nerve block if the patient's family wants this. It is still unclear specifically where the source originally came from but it seems likely to be a skin source. I did a dry CT chest/abdomen/pelvis which did not show any specific source of infection, only a small phlegmon in the pelvis and some mild pleural effusions. I have stopped the patient's IV fluids and started some Lasix to help with the effusions. Her creatinine has finally normalized and will need to be monitored closely now that we are switching back to diuretic. I put the patient on scheduled IV Dilaudid as she is on rather large doses of narcotics at home and may be withdrawing. She is refusing all p.o. currently. I also change the patient's antibiotics to daptomycin and added cefepime for extended coverage given that she is not improving clinically. ID recommends either daptomycin or vancomycin and in the setting of recently resolved LINA, I have elected to start her on daptomycin. Is now but the patient's pacemaker is not actually infected, however if this is the case I believe the patient should be strongly considered for hospice at that time. Not sure that she would survive the process of removing a pacemaker, undergoing washout, and then having pacemaker reimplanted once the bloodstream and surgical area have been definitively cleared of infection. Reason For Visit: CELLULITIS OF RIGHT INDEX FINGER,SEPSIS, Physical Exam Vital Signs: Temp Pulse Resp BP Pulse Ox 97.5 F 60 18 186/68 H 100 12/16/19 10:00 12/16/19 07:00 12/16/19 03:33 12/16/19 03:33 12/16/19 03:33 Intake & Output 12/15/19 12/16/19 12/17/19 06:59 06:59 06:59 Intake Total 2940 600 300 Output Total 2030 1140 Balance 910 -540 300 Weight 95 kg 89.2 kg Exam: General appearance: PRESENT: no acute distress, well-developed, well-nourished, obese, still moaning and making strange sounds "oh way oh way oh way" intermittently speaking clearly Head exam: PRESENT: atraumatic, normocephalic Eye exam: PRESENT: conjunctiva pink. ABSENT: scleral icterus Mouth exam: PRESENT: moist Respiratory exam: PRESENT: clear to auscultation michael. ABSENT: rales, rhonchi, wheezes Cardiovascular exam: PRESENT: RRR. ABSENT: diastolic murmur, rubs, systolic murmur GI/Abdominal exam: PRESENT: normal bowel sounds, distended, tender ABSENT: guarding, mass, organolmegaly, rebound Neurological exam: PRESENT: alert, awake, oriented to person, oriented to place, oriented to time, oriented to situation Psychiatric exam: PRESENT: appropriate affect, normal mood Skin exam: PRESENT: dry, intact, warm Extremities: Right index finger with distal necrotic wound suspicious for osteomyelitis, mildly delayed cap refill Results Laboratory Results: 12/16/19 09:46 12/16/19 09:46 12/16/19 12/16/19 09:46 09:46 WBC 12.2 H RBC 3.29 L Hgb 9.0 L Hct 28.0 L MCV 85 MCH 27.4 MCHC 32.2 RDW 17.4 H Plt Count 175 Seg Neutrophils % Not Reportable Sodium 134.1 L Potassium 4.1 Chloride 101 Carbon Dioxide 21 L Anion Gap 12 BUN 24 H Creatinine 0.93 Est GFR ( Amer) > 60 Glucose 154 H Calcium 8.7 12/14/19 18:40 Blood Blood Culture (PCR) - Final Staphylococcus Aureus 12/14/19 18:47 Blood Blood Culture (PCR) - Final Staphylococcus Aureus 12/12/19 21:50 Blood Blood Culture (PCR) - Final Staphylococcus Aureus 12/12/19 21:50 Blood Blood Culture - Final Mrsa (Meth Resis Staph Aureus) 12/12/19 22:00 Blood Blood Culture (PCR) - Final Staphylococcus Aureus 12/12/19 22:00 Blood Blood Culture - Final Mrsa (Meth Resis Staph Aureus) 12/12/19 12/13/19 12/13/19 22:00 01:12 04:10 Troponin I 0.245 0.234 0.213 Impressions: Chest X-Ray 12/12/19 21:31 IMPRESSION: No evidence of acute cardiopulmonary disease. Upper Extremity Ultrasound 12/13/19 00:00 IMPRESSION: NORMAL right L UPPER EXTREMITY ARTERIAL DOPPLER. No stenoses. Mild plaque. Upper Extremity CT 12/14/19 00:00 IMPRESSION: No findings of osteomyelitis in index finger. Head CT 12/15/19 00:00 IMPRESSION: 1. No acute intracranial findings. 2. Senescent changes with chronic microvascular ischemia. Abdomen/Pelvis CT 12/16/19 00:00 IMPRESSION: 1. Mild low attenuated soft tissue density in the presacral region may be on the basis of phlegmon. No evidence of abscess. No free fluid. 2. Atrophic appearing left kidney. 3. Additional findings as above. Chest CT 12/16/19 00:00 IMPRESSION: 1. Bilateral mild to moderate pleural effusions and compressive atelectatic changes and/or infiltrates in the lower lobes, left slightly more so. 2. Cardiomegaly. 3. Additional findings as above. Assessment and Plan - Diagnosis (1) Cellulitis of right index finger Is this a current diagnosis for this admission?: Yes (2) Acute kidney injury Is this a current diagnosis for this admission?: Yes (3) Elevated troponin Is this a current diagnosis for this admission?: Yes (4) Staphylococcus aureus bacteremia with sepsis Is this a current diagnosis for this admission?: Yes (5) Congestive heart failure Is this a current diagnosis for this admission?: Yes (6) Afib Is this a current diagnosis for this admission?: Yes (7) Benign essential hypertension Is this a current diagnosis for this admission?: Yes (8) Chronic anticoagulation Is this a current diagnosis for this admission?: Yes (9) Pacemaker Is this a current diagnosis for this admission?: Yes (10) Chronic pain syndrome Is this a current diagnosis for this admission?: Yes (11) Constipation Is this a current diagnosis for this admission?: Yes (12) MRSA bacteremia Is this a current diagnosis for this admission?: Yes - Plan Summary Summary: (1) Cellulitis of right index finger Is this a current diagnosis for this admission?: Yes Plan: Per Previous Physician: "Patient presents with signs of nonpurulent right index finger cellulitis Has marked leukocytosis with left shift Failed outpatient treatment Blood culture growing gram-positive cocci Started on linezolid" Linezolid changed to daptomycin as linezolid is bacteriostatic and will not cover bloodstream infection adequately Blood cultures growing MRSA Orthopedic surgery consult: Per daughter, patient is not a safe surgical candidate and has been denied surgery in the past CT right hand: No evidence of osteomyelitis If finger is the source of MRSA in the patient's bloodstream and we cannot establish good source control due to patient not being a good surgical candidate, hospice will need to be addressed as patient will continue to have b acteremia and sepsis Plan for transfer to [facility]: They are currently searching for a bed and r eviewing the case (2) Acute kidney injury Is this a current diagnosis for this admission?: Yes Plan: Per Previous Physician: "Creatinine has bumped up to 1.86 from a baseline of around 1.4-1.6 We will cautiously hydrate her due to her history of heart failure Monitor renal indices Renally dose medications and avoid nephrotoxic" Trend BMP Likely due to sepsis Creatinine gradually improving Resolved (3) Elevated troponin Is this a current diagnosis for this admission?: Yes Plan: Per Previous Physician: "Patient denies chest pain Likely type II NSTEMI from demand Troponin on presentation 0.243 EKG shows ventricular paced rhythm Cardiology was contacted by ED and recommends medical therapy We will continue to trend cardiac enzymes Continue aspirin, atorvastatin and beta-oanh Consider cardiology evaluation" Troponin flat/downtrending Still no chest pain May benefit from stress test outpatient (4) MRSA bacteremia with sepsis Is this a current diagnosis for this admission?: Yes Plan: Per Previous Physician: "Likely source of infection: right index finger cellulitis Blood culture growing gram-positive cocci Has leukocytosis of 19k with left shift Patient hemodynamically stable, lactic acid within the normal limits Patient has been started on linezolid Repeat blood cultures have been obtained and follow-up with results Closely monitor vital signs" Linezolid changed to daptomycin Source is very likely right index finger cellulitis Blood cultures on 12/11 and 12/13+ for MRSA Repeat blood cultures Concern for pacemaker involvement, needs TTE, SUSANA, transfer to [facility] for CT surgery evaluation Patient is followed by cardiology at [facility] outpatient (5) Congestive heart failure Is this a current diagnosis for this admission?: Yes Plan: Per Previous Physician: "Currently appears euvolemic Will hold Lasix for now due to signs of volume depletion and LINA Closely monitor her volume status and vital signs will consider restarting home medications after LINA and volume depletion imp roves" Still holding Lasix Stable (6) Afib Is this a current diagnosis for this admission?: Yes Plan: Rate controlled Continue home medications including apixaban (7) Benign essential hypertension Is this a current diagnosis for this admission?: Yes Plan: Stable (8) Chronic anticoagulation Is this a current diagnosis for this admission?: Yes (9) Pacemaker Is this a current diagnosis for this admission?: Yes Plan: Unable to get MRI due to this device Possible pacemaker infection due to MRSA bacteremia - Time Time Spent with patient: 35 or more minutes Anticipated Discharge Disposition: Tertiary Anticipated Discharge Timeframe: within 24 hours - Inpatient Certification Based on my medical assessment, after consideration of the patient's comorbidities, presenting symptoms, or acuity I expect that the services needed warrant INPATIENT care.: Yes I certify that my determination is in accordance with my understanding of Medicare's requirements for reasonable and necessary INPATIENT services [42 CFR 412.3e].: Yes Medical Necessity: Significant Comorbidiites Make Outpatient Treatment Too Risky, Need Close Monitoring Due to Risk of Patient Decompensation, Need For Continuous Telemetry Monitoring, Need for IV Antibiotics, Need for Surgery, Risk of Complication if Not Cared For in Hospital, Risk of Diagnosis Which Will Require Inpatient Eval/Care/Monitoring
[2019-12-16] MEDS: CEFEPIME HCL 2 GM in DEXTROSE 5%-WATER 50 ML IV SCH (18:52)
[2019-12-16] MEDS: AMLODIPINE BESYLATE 5 MG TABLET PO SCH (21:50)
[2019-12-16] MEDS ORDERED: DAPTOMYCIN 700 MG in NORMAL SALINE 50 ML IV SCH (22:00)
[2019-12-16] MEDS ORDERED: DAPTOMYCIN INJ 500 MG VIAL IV SCH (22:00)
[2019-12-17] MEDS: HYDROMORPHONE HCL INJ/PF 2 MG/ML AMPULE IV PRN ×3 (06:03→18:52)
[2019-12-17] MEDS: CEFEPIME HCL 2 GM in DEXTROSE 5%-WATER 50 ML IV SCH ×2 (06:04→17:21)
[2019-12-17] MEDS: HEPARIN SOD (PORCINE) 5,000 UNIT/ML 1 ML VIAL SUBCUT SCH ×2 (06:05→13:08)
[2019-12-17] MEDS: LEVOTHYROXINE SODIUM 0.088 MG TABLET PO SCH (06:23)
[2019-12-17] MEDS ORDERED: MIDAZOLAM 2 MG/2 ML INJ ONE (06:58)
[2019-12-17] MEDS ORDERED: FENTANYL CITRATE INJ/PF 100 MCG/2 ML AMPUL ONE (06:58)
[2019-12-17] MEDS ORDERED: ONDANSETRON HCL INJ/PF 4 MG/2 ML SDV ONE (06:59)
[2019-12-17] MEDS ORDERED: DEXAMETHASONE SOD PHOSPHATE INJ 4 MG/1 ML VIAL ONE (06:59)
[2019-12-17] MEDS ORDERED: PROPOFOL INJ 200 MG/20 ML VIAL IV ONE (06:59)
[2019-12-17] MEDS ORDERED: LIDOCAINE 2% INJ (20 MG/ML) 20 ML MDV ONE (06:59)
[2019-12-17] MEDS ORDERED: EPHEDRINE SULFATE INJ 50 MG/1 ML AMPULE ONE (06:59)
[2019-12-17 07:03] LABS: ABSOLUTE EOSINOPHILS # (AUTO) 0.2 10^3/uL (0.0-0.6); ABSOLUTE NEUT (AUTO) 7.2 10^3/uL (1.7-8.2); BASOPHILS % (AUTO) 0.3 % (0-2); EOSINOPHILS % (AUTO) 1.6 % (0-6); HEMATOCRIT 26.5 % (36.0-47.0); HEMOGLOBIN 8.7 g/dL (12.0-15.5); LYMPHOCYTES % (AUTO) 10.3 % (13-45); MEAN CORPUSCULAR HEMOGLOBIN 27.7 pg (27.0-33.4); MEAN CORPUSCULAR HGB CONC 32.7 g/dL (32.0-36.0); MEAN CORPUSCULAR VOLUME 85 fl (80-97); MONOCYTES % (AUTO) 11.1 % (3-13); PLATELET COUNT 157 10^3/uL (150-450); RED BLOOD COUNT 3.13 10^6/uL (3.72-5.28); RED CELL DISTRIBUTION WIDTH 17.1 % (11.5-14.0); SEGMENTED NEUTROPHILS % (AUTO) 76.7 % (42-78); TOTAL CELLS COUNTED % (AUTO) 100 %; WHITE BLOOD COUNT 9.3 10^3/uL (4.0-10.5)
[2019-12-17 07:26] LABS: ANION GAP 12 (5-19); BLOOD UREA NITROGEN 21 mg/dL (7-20); CALCIUM 8.4 mg/dL (8.4-10.2); CARBON DIOXIDE 23 mmol/L (22-30); CHLORIDE 101 mmol/L (98-107); GLUCOSE 130 mg/dL (75-110); POTASSIUM 3.7 mmol/L (3.6-5.0)
[2019-12-17] MEDS ORDERED: BUPIVACAINE HCL 0.5 % INJ/PF 30 ML SDV ONE (07:26)
[2019-12-17] MEDS ORDERED: LIDOCAINE 1% INJ-PF (10 MG/ML) 30 ML SDV ONE (07:26)
--- NOTE | 2019-12-17 07:33 | PDOC PROGRESS REPORT ---
Subjective Date:: 12/17/19 Subjective:: Patient still nonverbal. Seems to improved slightly with some appropriate respo nses this morning. Reason For Visit: CELLULITIS OF RIGHT INDEX FINGER,SEPSIS, Physical Exam Vital Signs: Temp Pulse Resp BP Pulse Ox 97.7 F 58 L 18 168/62 H 98 12/17/19 03:14 12/17/19 03:14 12/17/19 03:14 12/17/19 03:14 12/17/19 03:14 Intake & Output 12/16/19 12/17/19 12/18/19 06:59 06:59 06:59 Intake Total 600 545 Output Total 1140 1450 Balance -540 -905 Weight 89.2 kg 70.1 kg Physical Exam: Not alert or oriented to person place or time. Not verbally appropriately communicative Right upper extremity Area of dry necrotic tissue at the right index fingertip. No surrounding erythema or purulence. No swelling of the index finger as compared to associated digits, no sign of active infection at this time. Results Laboratory Results: 12/17/19 06:32 12/16/19 12/16/19 12/17/19 09:46 09:46 06:32 WBC 12.2 H 9.3 RBC 3.29 L 3.13 L Hgb 9.0 L 8.7 L Hct 28.0 L 26.5 L MCV 85 85 MCH 27.4 27.7 MCHC 32.2 32.7 RDW 17.4 H 17.1 H Plt Count 175 157 Seg Neutrophils % Not Reportable 76.7 Sodium 134.1 L Potassium 4.1 Chloride 101 Carbon Dioxide 21 L Anion Gap 12 BUN 24 H Creatinine 0.93 Est GFR ( Amer) > 60 Glucose 154 H Calcium 8.7 12/14/19 18:40 Blood Blood Culture (PCR) - Final Staphylococcus Aureus 12/14/19 18:47 Blood Blood Culture (PCR) - Final Staphylococcus Aureus 12/12/19 12/13/19 12/13/19 22:00 01:12 04:10 Troponin I 0.245 0.234 0.213 Impressions: Chest X-Ray 12/12/19 21:31 IMPRESSION: No evidence of acute cardiopulmonary disease. Upper Extremity Ultrasound 12/13/19 00:00 IMPRESSION: NORMAL right L UPPER EXTREMITY ARTERIAL DOPPLER. No stenoses. Mild plaque. Upper Extremity CT 12/14/19 00:00 IMPRESSION: No findings of osteomyelitis in index finger. Head CT 12/15/19 00:00 IMPRESSION: 1. No acute intracranial findings. 2. Senescent changes with chronic microvascular ischemia. Abdomen/Pelvis CT 12/16/19 00:00 IMPRESSION: 1. Mild low attenuated soft tissue density in the presacral region may be on the basis of phlegmon. No evidence of abscess. No free fluid. 2. Atrophic appearing left kidney. 3. Additional findings as above. Chest CT 12/16/19 00:00 IMPRESSION: 1. Bilateral mild to moderate pleural effusions and compressive atelectatic changes and/or infiltrates in the lower lobes, left slightly more so. 2. Cardiomegaly. 3. Additional findings as above. Assessment & Plan - Diagnosis (1) Gangrene of finger of right hand Is this a current diagnosis for this admission?: Yes Plan: I had a discussion with Dr. Mora as well as the family over the last day. Given that a bacterial source is still not been found, we will proceed with debridement of the finger and potential partial amputation of necrotic tissue at the fingertip. Cultures will be sent. Though it does not look grossly infectious at this time, concern for ongoing systemic infection warrants further evaluation in the operating room. - Time Time Spent with patient: Less than 15 minutes
[2019-12-17] MEDS ORDERED: DIPHENHYDRAMINE HCL 50 MG/ML VIAL IV PRN (07:51)
[2019-12-17] MEDS ORDERED: PROMETHAZINE HCL INJ 25 MG/1 ML VIAL IV PRN (07:51)
[2019-12-17] MEDS ORDERED: FENTANYL CITRATE INJ/PF 100 MCG/2 ML AMPUL IV PRN ×3 (07:51)
[2019-12-17] MEDS ORDERED: MEPERIDINE HCL/PF INJ 25 MG/1 ML DISP.SYRIN IV PRN (07:51)
--- NOTE | 2019-12-17 08:23 | Operative Report ---
Operative Report DATE OF SURGERY: 12/17/19 PREOPERATIVE DIAGNOSIS: Dry gangrene right index finger, potential osteomyelitis right second distal phalanx POSTOPERATIVE DIAGNOSIS: Osteomyelitis right second distal phalanx OPERATION: Right second distal phalanx amputation SURGEON: MICAH HARTLEY JR ANESTHESIA: Moderate Sedation TISSUE REMOVED OR ALTERED: Multiple cultures sent, both physical specimen as well as culture swab. COMPLICATIONS: None ESTIMATED BLOOD LOSS: 2 cc PROCEDURE: The patient was brought to the operating suite and laid supine on the operating table. They are on continuous antibiotics at the time, cefepime and daptomycin. The patient was laid supine on the operating table and placed under light sedation. The right upper extremity was prepped and draped in standard sterile fashion. An appropriate timeout was performed. The right second digit received a digital block with 1% lidocaine. A Hattie drain was used as a digital tourniquet. After adequate anesthesia an incision was made at the border of the necrosis of the distal fingertip. Upon removing dry necrotic soft tissue a small amount of purulence was encountered and this was cultured with a swab. The dry necrotic material was placed into a specimen cup. The fingernail was removed with a [place] elevator. A rongeur was used to remove exposed bone. The bone encountered was necrotic and unhealthy in appearance. Was soft and appeared to be infected. I used a curette to remove small pieces of bone and ultimately ended up at the DIP joint with no healthy bone encountered of the distal phalanx. Upon complete removal of distal phalanx which was also sent for culture, I return to the germinal matrix which was removed. After this the wound was copiously irrigated with sterile saline solution. 3-0 nylon was used to close the wound followed by application of a sterile dressing. Patient was then awakened from anesthesia and transferred the PACU in stable condition.
[2019-12-17] MEDS: ASPIRIN 81 MG TABLET, CHEWABLE PO SCH (09:29)
[2019-12-17] MEDS: LIDOCAINE 5% (700 MG) TRANSDERMAL ADH..PATCH TP SCH (09:29)
[2019-12-17] MEDS: PANTOPRAZOLE SODIUM 40 MG TABLET.DR PO SCH ×2 (09:30→17:19)
[2019-12-17] MEDS: PREGABALIN 50 MG CAPSULE PO SCH ×2 (09:30→17:19)
[2019-12-17] MEDS: METOPROLOL SUCCINATE 25 MG TAB.SR.24H PO SCH (09:30)
[2019-12-17] MEDS: MULTIVITAMIN TABLET PO SCH (09:30)
[2019-12-17] MEDS: CYANOCOBALAMIN (VITAMIN B-12) 1,000 MCG TABLET PO SCH (09:30)
[2019-12-17] MEDS: FUROSEMIDE INJ/PF 20 MG/2 ML SDV IV SCH (10:00)
[2019-12-17] MEDS ORDERED: TRAMADOL HCL 50 MG TABLET PO SCH (13:00)
--- NOTE | 2019-12-17 14:38 | RADIOLOGY REPORT (SQ) ---
EXAM DESCRIPTION: INTRO/GI TUBE W/FLUORO; INTRO LONG GI TUBE (MILLAB) IMAGES COMPLETED DATE/TIME: 12/17/2019 2:03 pm REASON FOR STUDY: enternal feeding; DUBHOFF PLACEMENT FOR FEEDING COMPARISON: None. TECHNIQUE: Live fluoroscopic guidance. RADIATION DOSE: 6.9 minutes 1 images saved to PACS. LIMITATIONS: None. FINDINGS: The patient was brought to the fluoroscopy room and placed supine on the fluoroscopy table . A NJ-tube was advanced through the stomach into the 3rd portion of the duodenum. Approximately 25 mL of non ionic contrast was injected through the catheter to confirm placement. A fluoroscopic spot film was saved to PACs demonstrating catheter tip within the 3rd to 4th portion of the duodenum. IMPRESSION: Successful fluoroscopic guided placement of feeding tube. COMMENT: Quality ID 145: Final reports for procedures using fluoroscopy that document radiation exp osure indices, or exposure time and number of fluorographic images (if radiation exposure indices are not available) TECHNICAL DOCUMENTATION: JOBD ID: [id number] 2010 [employer]- All Rights Reserved Reading location - IP/workstation name: [email or web address]
--- NOTE | 2019-12-17 14:38 | RADIOLOGY REPORT (SQ) ---
EXAM DESCRIPTION: INTRO/GI TUBE W/FLUORO; INTRO LONG GI TUBE (MILLAB) IMAGES COMPLETED DATE/TIME: 12/17/2019 2:03 pm REASON FOR STUDY: enternal feeding; DUBHOFF PLACEMENT FOR FEEDING COMPARISON: None. TECHNIQUE: Live fluoroscopic guidance. RADIATION DOSE: 6.9 minutes 1 images saved to PACS. LIMITATIONS: None. FINDINGS: The patient was brought to the fluoroscopy room and placed supine on the fluoroscopy table . A NJ-tube was advanced through the stomach into the 3rd portion of the duodenum. Approximately 25 mL of non ionic contrast was injected through the catheter to confirm placement. A fluoroscopic spot film was saved to PACs demonstrating catheter tip within the 3rd to 4th portion of the duodenum. IMPRESSION: Successful fluoroscopic guided placement of feeding tube. COMMENT: Quality ID 145: Final reports for procedures using fluoroscopy that document radiation exp osure indices, or exposure time and number of fluorographic images (if radiation exposure indices are not available) TECHNICAL DOCUMENTATION: JOBD ID: [id number] 2010 [employer]- All Rights Reserved Reading location - IP/workstation name: [email or web address]
--- NOTE | 2019-12-17 17:07 | XCELERA REPORT ---
[address] [address] Transthoracic Echocardiogram Report Name: JEEVAN ADAMS Age: 79 yrs Gender: Female : 1940 Patient Status: Inpatient Patient Location: [facility] [place]^A Study Date: 12/17/2019 11:24 AM Height: 62 in Weight: 209 lb BSA: 1.9 m2 Reason For Study: Endocarditis suspected Ordering Physician: CORINNE GANT Performed By: Maria Fernanda Kim Interpretation Summary FINDINGS: technically difficult. LEFT VENTRICLE: LV Systolic function: LVEF is felt to be mildly reduced at approximately 50%. LV Diastolic Function: Grade II diastolic dysfunction noted. Wall motion: not all wall segment were well visualised. Regional wall motion cannot be accurately commented upon. Left ventricular chamber size: is within normal limit. Left ventricular wall thickness: is increased indicative of Mild LVH. RIGHT VENTRICLE: RV systolic function: is felt to be within normal limit. Right Ventricle Size: is within normal limits. LEFT ATRIUM size: moderately dilated RIGHT ATRIUM size: moderately dilated INTER ATRIAL SEPTUM: No definite atrial septal defect noted however a small PFO could be missed. AORTIC ROOT: seems to be within normal limits. ASCENDING AORTA: is not well visualized. INFERIOR VENA CAVA: borderline dilated with normal respiratory variation MITRAL VALVE: Leaflets are mildly thickened. Significant mitral annular calcification noted. Cannot rule out previous ring repair of the mitral valve. Mitral Regurgitation: mild to moderate mitral regurgitation is noted. Mitral Stenosis: No mitral stenosis noted. Mitral valve prolapse: none noted. AORTIC VALVE: valve has appearance of possible prior TAVR. Clinical correlation with surgical history indicated. Aortic stenosis: No aortic stenosis noted. Aortic regurgitation: trace aortic incompetence noted. TRICUSPID VALVE: mobility and structures within normal limit. Tricuspid stenosis: no tricuspid stenosis noted. Tricuspid regurgitation: moderate tricuspid regurgitation noted. Estimated RVSP: best estimated RVSP is approximately 65 mmHg consistent with severe pulmonary hypertension. PULMONARY VALVE: was not well visualized but no significant abnormalities suspected. Pulmonary stenosis: no pulmonary stenosis noted. Pulmonary regurgitation: no significant pulmonary regurgitation noted. MASSES AND THROMBUS: No definite intracardiac thrombus or masses are noted. PERICARDIUM: No pericardial effusion was noted. INCIDENTAL FINDINGS: pacemaker lead noted traversing the tricuspid valve. IMPRESSION: 1. Mildly depressed LVEF. 2. Mild LVH noted. 3. Grade II Diastolic Dysfunction noted. 4. 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 Cannot rule out prior mitral valve ring repair. 5. LA moderately dilated, RA moderately dilated . 6. Moderate mitral and moderate tricuspid regurgitation noted. 7. RVSP estimated at 65 mmHg consistent with moderate to severe pulmonary hypertension. 9. Incidental note of pacemaker lead noted traversing the tricuspid valve. Echocardiogram was technically difficult therefore clinical correlation is requested. MMode/2D Measurements & Calculations RVDd: 2.2 cm LVIDd: 5.6 cm FS: 25.3 % Ao root diam: 2.2 cm IVSd: 0.99 cm LVIDs: 4.2 cm EDV(Teich): Ao root area: LVPWd: 1.1 cm 154.0 ml ESV(Teich): 78.1 ml3.9 cm2 LA dimension: 4.9 cm EF(Teich): 49.3 % LVLd ap4: 6.7 cm SV(MOD-sp4): EDV(MOD-sp4): 39.0 ml 59.0 ml LVLs ap4: 5.1 cm ESV(MOD-sp4): 20.0 ml EF(MOD-sp4): 66.1 % Doppler Measurements & Calculations MV E max dali: MV P1/2t max dali: Ao V2 max: LV V1 max P.1 cm/sec 179.4 cm/sec 227.4 cm/sec 8.6 mmHg MV A max dali: MV P1/2t: 49.8 msec Ao max PG: LV V1 mean P.6 cm/sec 20.7 mmHg 4.0 mmHg MV E/A: 1.9 MVA(P1/2t): 4.4 cm2 Ao V2 mean: LV V1 max: MV dec slope: 136.4 cm/sec 146.5 cm/sec 1056 cm/sec2 MV dec time: 0.17 sec Ao mean PG: LV V1 mean: 9.0 mmHg 91.6 cm/sec Ao V2 VTI: 49.0 cmLV V1 VTI: 33.5 cm PA V2 max: PI end-d dali: TR max dali: MV P1/2t-pr_phl: 80.0 cm/sec 122.2 cm/sec 378.7 cm/sec 49.8 msec PA max P.6 mmHg TR max P.4 mmHg : CORINNE GANT Shyamal
--- NOTE | 2019-12-17 19:00 | PDOC TRANSFER SUMMARY ---
General Admission Date/PCP: 12/13/19 01:08 HAYDER GARCIA Resuscitation Status: Full Code - Transfer Diagnosis (1) MRSA bacteremia Is this a current diagnosis for this admission?: Yes Diagnosis Summary: Per Previous Physician: "Likely source of infection: right index finger cellulitis Blood culture growing gram-positive cocci Has leukocytosis of 19k with left shift Patient hemodynamically stable, lactic acid within the normal limits Patient has been started on linezolid Repeat blood cultures have been obtained and follow-up with results Closely monitor vital signs" Linezolid changed to daptomycin Source is very likely right index finger cellulitis Blood cultures on 12/11 and 12/13+ for MRSA Repeat blood cultures Concern for pacemaker involvement, needs TTE, SUSANA, transfer to [facility] for CT surgery evaluation Patient is followed by cardiology at [facility] outpatient Per infectious disease recommendation patient was switched from linezolid to daptomycin 8 mix per kerry. 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 -Specimen sent to microbiology -Currently on daptomycin day 1 for MRSA bacteremia -Also on cefepime day 2 Received 4 days of linezolid (3) Acute kidney injury Is this a current diagnosis for this admission?: Yes Diagnosis Summary: Per Previous Physician: "Creatinine has bumped up to 1.86 from a baseline of around 1.4-1.6 We will cautiously hydrate her due to her history of heart failure Monitor renal indices Renally dose medications and avoid nephrotoxic" Trend BMP Likely due to sepsis Creatinine gradually improving Resolved (4) Congestive heart failure Is this a current diagnosis for this admission?: Yes Diagnosis Summary: Per Previous Physician: "Currently appears euvolemic Will hold Lasix for now due to signs of volume depletion and LINA Closely monitor her volume status and vital signs will consider restarting home medications after LINA and volume depletion improves" Still holding Lasix Stable (5) Afib Is this a current diagnosis for this admission?: Yes Diagnosis Summary: Rate controlled Continue home medications including apixaban (6) Pacemaker Is this a current diagnosis for this admission?: Yes Diagnosis Summary: Patient has a pacemaker and there is a concern for pacemaker infection since she is going MRSA on her blood. - Transfer Medications Home Medications: Acetaminophen [Acetaminophen Extra Strength] 1,000 mg PO TID 12/13/19 Amlodipine Besylate [Norvasc 5 mg Tablet] 5 mg PO DAILY 12/13/19 Cyanocobalamin (Vitamin B-12) [Vitamin B-12 1000 Mcg Tablet] 5,000 mcg PO DAILY 12/13/19 Desvenlafaxine Succinate [Pristiq ER] 50 mg PO DAILY 12/13/19 Duloxetine HCl [Cymbalta 30 mg Capsule.dr] 30 mg PO DAILY 12/13/19 Furosemide [Lasix 40 mg Tablet] 40 mg PO QAM 12/13/19 Lactobacillus Acidophilus [Probiotic Acidophilus] 1 each PO DAILY 12/13/19 Levothyroxine Sodium [Synthroid 0.075 mg Tablet] 0.075 mg PO Q6AM 12/13/19 Lidocaine [Lidoderm 5% (700 mg) Transdermal Patch] 1 patch TP DAILY 12/13/19 Metoprolol Succinate [Toprol Xl 25 mg Tab.sr] 25 mg PO DAILY 12/13/19 Multivitamin [Tab-A-Suma (Multiple Vitamin) Tablet] 1 tab PO DAILY 12/13/19 Ondansetron [Zofran Odt 4 mg Tablet] 12 mg PO Q8HP PRN 12/13/19 Pantoprazole Sodium [Protonix [address] Tablet] 40 mg PO BID 12/13/19 Pregabalin [Lyrica 50 Mg Capsule] 50 mg PO BID MDD 150 MG 12/13/19 Tapentadol HCl [Nucynta ER] 100 mg PO Q12 12/13/19 Tramadol HCl [Ultram 50 mg Tablet] 50 mg PO Q6HP PRN MDD FILLED 12/11 FOR 10 DAY SUPPLY 12/13/19 Transfer Medications: Current Medications Amlodipine Besylate (Norvasc 5 Mg Tablet) 5 mg PO QHS JOSESITO Stop: 01/12/20 21:59 Last Admin: 12/16/19 21:50 Dose: Not Given Documented by: Apixaban (Eliquis 5 Mg Tablet) 5 mg PO Q12 JOSESITO Stop: 01/12/20 09:59 Last Admin: 12/15/19 13:15 Dose: Not Given Documented by: Aspirin (Aspirin 81 Mg Chewable Tablet) 81 mg PO DAILY JOSESITO Stop: 01/12/20 09:59 Last Admin: 12/17/19 09:29 Dose: Not Given Documented by: Bisacodyl (Dulcolax 5 Mg Tablet) 5 mg PO DAILYP PRN PRN Reason: FOR CONSTIPATION Stop: 01/14/20 19:41 Bisacodyl (Dulcolax 10 Mg Supp.Rect) 10 mg IN DAILYP PRN PRN Reason: FOR CONSTIPATION Stop: 01/14/20 19:42 Last Admin: 12/16/19 00:35 Dose: 10 mg Documented by: Clonidine HCl (Catapres-Tts 2 (0.2 Mg/24 Hr) Transderm Ptch) 1 each TD Mo@10 [facility] Stop: 01/15/20 10:59 Last Admin: 12/16/19 11:03 Dose: 1 each Documented by: Cyanocobalamin (Vitamin B-12 1000 Mcg Tablet) 5,000 mcg PO DAILY [facility] Stop: 01/13/20 09:59 Last Admin: 12/17/19 09:30 Dose: Not Given Documented by: Dextrose (Dextrose Inj 50% Syringe (25 Gm/50 Ml)) 12.5 gm IV PRN PRN; Protocol PRN Reason: FOR BG 50-69 IN ALERT PATIENT Stop: 01/14/20 06:54 Dextrose (Dextrose Inj 50% Syringe (25 Gm/50 Ml)) 25 gm IV PRN PRN; Protocol PRN Reason: See Label Comments Stop: 01/14/20 06:54 Furosemide (Lasix Inj/Pf 20 Mg/2 Ml Sdv) 20 mg IV DAILY [facility] Stop: 01/15/20 16:29 Last Admin: 12/17/19 10:00 Dose: 20 mg Documented by: Glucagon (Glucagen Inj 1 Mg Vial) 1 mg SUBCUT PRN PRN; Protocol PRN Reason: Evaluate for BG < 70 Stop: 01/14/20 06:54 Glucose (Glutose 40% Gel 15 Gm Tube) 15 gm PO PRN PRN; Protocol PRN Reason: For BG 50-69 in Alert Patient Stop: 01/14/20 06:54 Glucose (Glutose 40% Gel 15 Gm Tube) 30 gm PO PRN PRN; Protocol PRN Reason: FOR BG < 50 IN ALERT PATIENT Stop: 01/14/20 06:54 Heparin Sodium (Porcine) (Heparin Inj 5,000 Units/Ml 1 Ml Vial) 5,000 unit SUBCUT Q8 JOSESITO Stop: 01/14/20 13:59 Last Admin: 12/17/19 13:08 Dose: 5,000 unit Documented by: Hydromorphone HCl (Dilaudid 2 Mg Tablet) 0.5 mg PO Q6HP PRN PRN Reason: Moderate to severe pain Stop: 12/21/19 15:07 Hydromorphone HCl (Dilaudid Inj/Pf 2 Mg/Ml Ampule) 1 mg IV Q6H PRN PRN Reason: PAIN Stop: 12/23/19 13:20 Last Admin: 12/17/19 12:08 Dose: 1 mg Documented by: Cefepime HCl 2 gm/ Dextrose 50 mls @ 100 mls/hr IV Q12A JOSESITO Stop: 12/23/19 17:59 Last Admin: 12/17/19 17:21 Dose: 100 mls/hr Documented by: Daptomycin 700 mg/ Sodium (Chloride) 50 mls @ 100 mls/hr IV QHS JOSESITO Stop: 12/23/19 21:59 Last Infusion: 12/16/19 23:41 Dose: Infused Documented by: Labetalol HCl (Normodyne Inj 20 Mg/4 Ml Syringe) 10 mg IV Q6HP PRN PRN Reason: SBP >180 Stop: 01/15/20 16:26 Levothyroxine Sodium (Synthroid 0.088 Mg Tablet) 0.088 mg PO Q6AM JOSESITO Stop: 01/12/20 07:59 Last Admin: 12/17/19 06:23 Dose: Not Given Documented by: Lidocaine (Lidoderm 5% (700 Mg) Transdermal Patch) 1 patch TP DAILY JOSESITO Stop: 01/13/20 09:59 Last Admin: 12/17/19 09:29 Dose: Not Given Documented by: Metoprolol Succinate (Toprol Xl 25 Mg Tab.Sr) 25 mg PO DAILY JOSESITO Stop: 01/13/20 09:59 Last Admin: 12/17/19 09:30 Dose: Not Given Documented by: Multivitamins (Tab-A-Suma (Multiple Vitamin) Tablet) 1 tab PO DAILY JOSESITO Stop: 01/13/20 09:59 Last Admin: 12/17/19 09:30 Dose: Not Given Documented by: Pantoprazole Sodium (Protonix [address] Tablet) 40 mg PO BID JOSESITO Stop: 01/13/20 09:59 Last Admin: 12/17/19 17:19 Dose: Not Given Documented by: Pregabalin (Lyrica 50 Mg Capsule) 50 mg PO BID [facility] Stop: 01/12/20 21:59 Last Admin: 12/17/19 17:19 Dose: Not Given Documented by: Sodium Biphosphate/Sodium Phosphate (Fleet Enema (Adult) 133 Ml) 133 ml IN DAILYP PRN PRN Reason: FOR CONSTIPATION Stop: 01/14/20 19:43 Tramadol HCl (Ultram 50 Mg Tablet) 50 mg PO Q8 JOSESITO Stop: 12/24/19 12:59 Last Admin: 12/17/19 12:15 Dose: Not Given Documented by: - Allergies Allergies/Adverse Reactions: hydrocodone [Hydrocodone] Allergy (Mild, Verified 12/16/19 13:46) Hives oxycodone HCl [From Percocet] Allergy (Mild, Verified 12/16/19 13:45) Hives trazodone [Trazodone] Allergy (Verified 02/12/14 05:53) Hospital Course Hospital Course: Per Previous Physician: "JEEVAN ADAMS is a 79 year old female with a history of hypertension on anticoagulation, heart failure, hypertension who was seen at the ED a day ago for cellulitis of the right index finger with cold about this afternoon after he had blood culture obtained on that visit grew gram-positive cocci from both bottles. Currently patient reports pain on the affected area, there is also redness and swelling associated with it. Patient also reports low back pain. Of note, she had sacral fracture few months back after a fall and has been on tramadol as needed." 12/14/2019 Patient seems to be a bit improved today although she is certainly not back to her baseline mentation and health. Her blood cultures are growing MRSA 2/2 bottles. She is already on Zyvox. I noticed in the patient's home medications that she is on very strong narcotics which we are currently holding. Unfortunately, hydrocodone and oxycodone are both listed in her allergies as causing hives. I have added very low-dose as needed Dilaudid oral given that she could potentially go through narcotics withdrawal. I have consulted orthopedic surgery to look at her right hand and evaluated for osteomyelitis. PVL upper extremity yesterday did not show any significant arterial stenosis in her right arm. We will get MRI of her right hand in the meantime. Patient has no new complaints. 12/15/2019 Patient seen moaning and making strange sounds today. Per daughter, this is what the patient how the patient behaves when she is in pain and does not have adequate pain medication. I have prescribed her some narcotics but she has been too confused to take oral medications. I discussed with nursing that we will change this to IV narcotics. Patient may be a good candidate for a fentanyl patch but this should be evaluated by pain medicine physician. We will consult pain management as well as palliative care per daughter request. I will get an echocardiogram due to having MRSA in the blood. According to patient's daughter, she has been told that she is not a candidate for any surgeries. Patient's daughter is an RN at a [employer] and would like the patient evaluated by palliative care. Assuming that the patient has MRSA in her blood due to an infected right index finger with osteomyelitis that is unable to be amputated due to surgical risk, the patient would certainly need to be evaluated for hospice care as she will very likely continue to seed MRSA and to her blood for the remainder of her life. 12/16/2019 Long discussion with pt's family regarding the course so far and the plan going forward. I consulted ID and they are recommending additional imaging including a SUSANA. They are concerned that the patient may have an infected pacemaker and I agree that this would certainly portend a very poor prognosis for a patient of advanced age with other comorbidities such as this. I have started the transfer process to get the patient to [facility] however they state they are at capacity and are unsure of their availability in the near future. Patient's family requested that she go to [facility] because her [employer] history professor has privileges at that hospital and could potentially see her there. In the meantime, I will get a chest CT with contrast per ID request as well as a TTE. Per Harriet, patient's family, patient has a long history of scratching open wounds on her skin due to the itching that occurs from her narcotics and she is concerned that this may have introduced MRSA into the patient's bloodstream. Also discussed the case with orthopedics today and they are willing to do a fingertip amputation of the right index finger with conscious sedation and a nerve block if the patient's family wants this. It is still unclear specifically where the source originally came from but it seems likely to be a skin source. I did a dry CT chest/abdomen/pelvis which did not show any specific source of infection, only a small phlegmon in the pelvis and some mild pleural effusions. I have stopped the patient's IV fluids and started some Lasix to help with the effusions. Her creatinine has finally normalized and will need to be monitored closely now that we are switching back to diuretic. I put the patient on scheduled IV Dilaudid as she is on rather large doses of narcotics at home and may be withdrawing. She is refusing all p.o. currently. I also change the patient's antibiotics to daptomycin and added cefepime for extended coverage given that she is not improving clinically. ID recommends either daptomycin or vancomycin and in the setting of recently resolved LINA, I have elected to start her on daptomycin. Is now but the patient's pacemaker is not actually infected, however if this is the case I believe the patient should be strongly considered for hospice at that time. Not sure that she would survive the process of removing a pacemaker, undergoing washout, and then having pacemaker reimplanted once the bloodstream and surgical area have been definitively cleared of infection. Physical Exam Vital Signs: Temp Pulse Resp BP Pulse Ox 97.9 F 60 17 151/50 H 100 12/17/19 14:00 12/17/19 14:00 12/17/19 14:00 12/17/19 14:00 12/17/19 14:00 Intake & Output 12/16/19 12/17/19 12/18/19 06:59 06:59 06:59 Intake Total 600 595 600 Output Total 1140 1450 220 Balance -540 -855 380 Weight 89.2 kg 70.1 kg 70.1 kg General appearance: PRESENT: cooperative, mild distress Head exam: PRESENT: atraumatic, normocephalic Eye exam: PRESENT: EOMI, PERRLA Neck exam: PRESENT: full ROM Respiratory exam: PRESENT: clear to auscultation michael, symmetrical, unlabored Cardiovascular exam: PRESENT: RRR, +S1, +S2 Pulses: PRESENT: normal radial pulses GI/Abdominal exam: PRESENT: normal bowel sounds, soft. ABSENT: rebound, tenderness Musculoskeletal exam: PRESENT: tenderness, other - Bilateral lower extremity Neurological exam: PRESENT: alert - She opens her eyes and wakes up when her name is called however her verbal output is very limited in all she can say is ouch it hurts Psychiatric exam: PRESENT: appropriate affect Results Laboratory Results: 12/17/19 06:32 12/17/19 06:32 12/17/19 12/17/19 12/17/19 06:32 06:32 06:32 WBC 9.3 RBC 3.13 L Hgb 8.7 L Hct 26.5 L MCV 85 MCH 27.7 MCHC 32.7 RDW 17.1 H Plt Count 157 Seg Neutrophils % 76.7 Sodium 135.6 L Potassium 3.7 Chloride 101 Carbon Dioxide 23 Anion Gap 12 BUN 21 H Creatinine 0.91 Est GFR ( Amer) > 60 Glucose 130 H Calcium 8.4 C-Reactive Protein 85.3 H 12/14/19 18:47 Blood Blood Culture (PCR) - Final Staphylococcus Aureus 12/14/19 18:47 Blood Blood Culture - Final Mrsa (Meth Resis Staph Aureus) 12/14/19 18:40 Blood Blood Culture (PCR) - Final Staphylococcus Aureus 12/14/19 18:40 Blood Blood Culture - Final Mrsa (Meth Resis Staph Aureus) 12/12/19 12/13/19 12/13/19 22:00 01:12 04:10 Troponin I 0.245 0.234 0.213 Impressions: Chest X-Ray 12/12/19 21:31 IMPRESSION: No evidence of acute cardiopulmonary disease. Upper Extremity Ultrasound 12/13/19 00:00 IMPRESSION: NORMAL right L UPPER EXTREMITY ARTERIAL DOPPLER. No stenoses. Mild plaque. Upper Extremity CT 12/14/19 00:00 IMPRESSION: No findings of osteomyelitis in index finger. Head CT 12/15/19 00:00 IMPRESSION: 1. No acute intracranial findings. 2. Senescent changes with chronic microvascular ischemia. Abdomen/Pelvis CT 12/16/19 00:00 IMPRESSION: 1. Mild low attenuated soft tissue density in the presacral region may be on the basis of phlegmon. No evidence of abscess. No free fluid. 2. Atrophic appearing left kidney. 3. Additional findings as above. Chest CT 12/16/19 00:00 IMPRESSION: 1. Bilateral mild to moderate pleural effusions and compressive atelectatic changes and/or infiltrates in the lower lobes, left slightly more so. 2. Cardiomegaly. 3. Additional findings as above. Gastrostomy Tube Placement 12/17/19 00:00 IMPRESSION: Successful fluoroscopic guided placement of feeding tube. Guidance Fluoroscopy 12/17/19 00:00 IMPRESSION: Successful fluoroscopic guided placement of feeding tube. Plan Discharge Plan: Patient needs to be transferred to a tertiary care facility for management of possible pacemaker infection secondary to MRSA bacteremia.
[2019-12-17 20:51] VITALS: BP 151/63
== END 2019-12-17 20:15 | disposition short-term general hospital (02) | DRG 853 ==
LOC: ER 21:07 → EH 12-13 01:08 → 4N 12-13 02:00
PROVIDERS: ADMIT Student in an Organized Health Care Education/Training Program; ATTEND Internal Medicine
PROC: 0X6Q0Z3 Detachment at Right Middle Finger, Low, Open Approach (ICD-10-PCS; principal; 2019-12-17 07:30)
DX: A41.02 Sepsis due to Methicillin resistant Staphylococcus aureus (principal); I21.A1 Myocardial infarction type 2; N17.9 Acute kidney failure, unspecified; M86.9 Osteomyelitis, unspecified; I50.9 Heart failure, unspecified; I11.0 Hypertensive heart disease with heart failure; I48.91 Unspecified atrial fibrillation; E78.5 Hyperlipidemia, unspecified; R79.89 Other specified abnormal findings of blood chemistry; E11.69 Type 2 diabetes mellitus with other specified complication; G89.4 Chronic pain syndrome; Z90.49 Acquired absence of other specified parts of digestive tract; Z95.0 Presence of cardiac pacemaker; Z87.81 Personal history of (healed) traumatic fracture; Z88.6 Allergy status to analgesic agent; Z20.828 Contact with and (suspected) exposure to other viral communicable diseases; Z86.73 Personal history of transient ischemic attack (TIA), and cerebral infarction without residual deficits
CPT/HCPCS: 01830; 36415; 44500; 70450; 71045; 71250; 72110; 74176; 74340; 80048; 80053; 81001; 82803; 82962; 83605; 84443; 84484; 85025; 85610; 86140; 87040; 87070; 87075; 87077; 87150; 87186; 87205; 87635; 93005; 93010; 93306; 93931; 96361; 96365; 99285; C9803; J0360; J0692; J0878; J1100; J1170; J1644; J1940; J2020; J2250; J2405; J2704; J3010; J3490; J7060; J7120